=== PATIENT | female | born 1945 | race Hispanic/Latino ===

== ENCOUNTER 2016-12-16 07:07 | Day surgery (SDC) | payer MEDICARE ==
[~2016-12-16 07:07] MED LIST: TETRACAINE 0.5% OS PRN
[2016-12-16] MEDS: MYDRIACYL OS SCH ×3 (08:40→08:50)
[2016-12-16] MEDS: AK-Dilate OS SCH ×3 (08:40→08:50)
[2016-12-16] MEDS: VIGAMOX OS SCH ×3 (08:40→08:50)
[2016-12-16] MEDS ORDERED: VERSED ONE (08:57)
--- NOTE | 2016-12-16 08:57 | Anesthesia Day of Surgery ---
Anesthesia Day of Surgery - Day of Surgery Patient Examined: Yes Patient H&P Reviewed: Yes Patient is NPO: Yes
[2016-12-16] MEDS ORDERED: SUBLIMAZE ONE (08:58)
--- NOTE | 2016-12-16 09:00 | Anesthesia Consultation ---
Anesthesia Consult and Med Hx Date of service: 12/16/16 - Airway Anesthetic Teeth Evaluation: Good ROM Head & Neck: Adequate Mental/Hyoid Distance: Adequate (small mouth opening) Mallampati Class: Class IV Intubation Access Assessment: Possibly Difficult - Pulmonary Exam CTA: Yes - Cardiac Exam Cardiac Exam: RRR - Pre-Operative Health Status ASA Pre-Surgery Classification: ASA3 Proposed Anesthetic Plan: MAC - Pulmonary Hx Smoking: No Hx Respiratory Symptoms: Yes (coughing) Hx Sleep Apnea: No - Cardiovascular System Hx Hypertension: Yes (irregular heart beat 5-6 years ago, ) Hx Heart Attack/AMI: No Hx Angina: No - Central Nervous System Hx Seizures: No CVA: No Hx Psychiatric Problems: Yes (anxiety) - Gastrointestinal Hx Gastroesophageal Reflux Disease: Yes (spicy foods) - Endocrine Hx Renal Disease: No Hx Liver Disease: No Hx Non-Insulin Dependent Diabetes: Yes (metformin) - Hematic Hx Anemia: No - Other Systems 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
[2016-12-16] MEDS ORDERED: WATER FOR IRRIG STERILE IR ONE (09:01)
--- NOTE | 2016-12-16 09:35 | Operative Report ---
Operative Report Operative Report: PATIENT'S NAME: DATE OF : DATE OF SURGERY: 12/16/2016 PREOPERATIVE DIAGNOSIS: Cataract left eye POSTOPERATIVE DIAGNOSIS: Same OPERATIVE PROCEDURE: Phacoemulsification with intraocular lens implantation, left eye SURGEON: Rebecca Avila M.D. DOCUMENTATION NURSE SURGEON: Tiburcio Lens: [id number] 18.0 D ANESTHESIA: Monitored anesthesia care in combination with topical and intracameral anesthesia because of the established specific risk of reflux, arrhythmias, or anxiety attacks associated with ocular manipulation, as well as the difficulty of the wheel alignment mechanic to manage such potentially catastrophic events while simultaneously attempting to complete the surgical procedure and was deemed necessary for the patient's safety to have an Supervisor Fruit Grading present during the procedure whenever possible. An Supervisor Fruit Grading was utilized to regulate the intravenous sedation of the patient so the patient was cooperative yet not asleep in order for the patient to successfully maintain fixation of the eye on the operating light of the microscope. COMPLICATIONS: No surgical complications No blood loss. ALLERGIES: No known drug allergies PROGNOSIS: Excellent INDICATIONS FOR SURGERY: The patient is undergoing surgery in the hopes of eliminating or improving these visual difficulties. PROCEDURE: After arriving at the surgery center, the patient was given topical anesthetic and dilating drops, as noted in the record. The patient was then taken into the operating room and given more anesthetic drops. The eyelids , lashes, and lid margins were scrubbed with Betadine solution, and the patient was draped. The Nurse Supervisor Fruit Grading administered IV sedation and monitored the patient during the procedure. The eye was then fixated with a 0.12, and a stab incision was made in the peripheral clear cornea into the anterior chamber. This was made on my left side. Viscoelastic was next used to fill the anterior chamber. The eye was once again fixated with the 0.12 forceps and a keratome was used make an incision in clear cornea peripherally on my right hand side temporally. The capsule forceps were used to open the central anterior capsule and then make a continuous round capsulotomy. Hydrodissection was carried out utilizing a cannula and balanced salt solution to delineate the cortical material from the capsule and the nucleus from the cortical material. The phaco tip was introduced into the eye and used to remove the anterior cortical material in the area of the capsulotomy. Then the phaco tip was buried into the nucleus, and a chopping instrument was introduced into the eye and used to provide countertraction in the nucleus between this instrument and the phaco tip fracturing the nucleus. This procedure was repeated multiple times, providing multiple small segments of the lens, and then the phaco tip was used to remove each of these segments. An I/A tip was then used to remove the remaining cortex. The anterior chamber was refilled with viscoelastic. An one-piece, acrylic intraocular lens was then placed into an inserting cartridge. The tip of the inserting cartridge was introduced into the keratome incision and into the anterior chamber. The implant was gently advanced through the cartridge and into the eye, where it unfolded, and both haptics were placed in the capsular bag, where it centered nicely and appeared to be well fixated. After placement of the intraocular lens, the I~and~A handpiece was placed back into the eye and used to remove the viscoelastic, including viscoelastic that was behind the optic of the intraocular lens. The anterior chamber was then filled with balanced salt solution, and hydration of the wound was used to cause swelling of the wound and more appropriate watertight closure. When the wound was found to be firm, the patient was asked to comment on how bright the light was. If there was no light perception at all or if the light was substantially dimmer than during the rest of the surgery, the amount of fluid in the eye was decompressed to lower the intraocular pressure until the patient could see the bright light again. This was done to avoid any damage or decreased blood flow to the optic nerve. MEDICATIONS APPLIED AT END OF SURGERY: One drop of Pred Forte and Vigamox The patient was given a shield to wear at night and was instructed not to rub or push on the eye. DISCHARGE SUMMARY: The patient was released in stable condition. The patient and those with the patient were given a written sheet of postoperative instructions and counseling on any abnormal laboratory studies. The patient is to see us tomorrow for follow-up in the office and is to call immediately for any difficulties. Rebecca Avila M.D. Date
--- NOTE | 2016-12-16 09:37 | Short Stay Summary ---
Short Stay Documentation Date of service: 12/16/16 - History H&P: obtained from office - Allergies and Medications Current Medications: Allergies No Known Allergies Allergy (Unverified 01/23/15 09:01) Home Medications Medication Instructions Recorded Confirmed Last Taken Type Amlodipine Besylate/Benazepril 1 each PO QDAY 12/15/16 12/15/16 12/16/16 05:30 History [Lotrel 10-40 mg] AtorvaSTATin [Lipitor] 20 mg PO QDAY 12/15/16 12/15/16 12/15/16 History FLUoxetine [PROzac] 20 mg PO QDAY 12/15/16 12/15/16 12/15/16 History Glimepiride [Amaryl] 2 mg PO BID 12/15/16 12/15/16 12/15/16 History Goody's Ex-Str Powder Packet 1 packet PO QDAY PRN 12/15/16 12/15/16 12/15/16 History Metformin HCl [Glucophage] 1,000 mg PO BID 12/15/16 12/15/16 12/15/16 History Triamter/Hctz 37.5-25 mg 0.5 tab PO QDAY 12/15/16 12/15/16 12/16/16 05:30 History [Maxzide-25] Active Medications Moxifloxacin HCl (Vigamox) 1 drops OS Q5MIN DAMI Stop: 12/16/16 18:00 Last Admin: 12/16/16 08:50 Dose: 1 drops Phenylephrine HCl (Ak-Dilate) 1 drops OS Q5MIN DAMI Stop: 12/16/16 18:00 Last Admin: 12/16/16 08:50 Dose: 1 drops Tetracaine HCl (Tetracaine 0.5%) 1 drops OS Q5M PRN PRN Reason: Analgesia Stop: 12/16/16 18:00 Last Admin: 12/16/16 08:40 Dose: 1 drops Tropicamide (Mydriacyl) 1 drops OS Q5MIN DAMI Stop: 12/16/16 18:00 Last Admin: 12/16/16 08:50 Dose: 1 drops - Brief post op/procedure progress note Date of procedure: 12/16/16 Pre-op diagnosis: cataract left Post-op diagnosis: same Procedure: Phacoemulsification with intraocular lens insertion left eye Anesthesia: MAC Surgeon: JENNIFER GRAHAM Estimated blood loss: none Pathology: none Condition: stable - Disposition Condition at discharge: Good Disposition: DISCHARGED TO HOME OR SELFCARE - Discharge Diagnoses (1) Cataract Status: Resolved Short Stay Discharge Plan Follow up with: ORLIN BLACKMON MD [Primary Care Provider] - 7 Days
[2016-12-16] MEDS ORDERED: PRED FORTE 1% OS SCH (10:00)
--- NOTE | 2016-12-16 10:00 | Post Anesthesia Evaluation ---
- Post Anesthesia Evaluation Patient Participated: Yes Airway Patent: Yes Stable Respiratory Function: Yes Nausea/Vomiting: No Temp > 96.8F: Yes Pain Manageable: Yes Adequeate Hydration: Yes Anesthesia Complications: No Block Receding Appropriately: Not Applicable Patient on Ventilator: No
[2016-12-16 10:13] VITALS: BP 135/66
== END 2016-12-16 10:25 | disposition home or self-care (01) ==
LOC: OR 07:07
DX: E11.36 Type 2 diabetes mellitus with diabetic cataract (principal); M19.90 Unspecified osteoarthritis, unspecified site; I10 Essential (primary) hypertension; K21.9 Gastro-esophageal reflux disease without esophagitis; F41.9 Anxiety disorder, unspecified; E66.9 Obesity, unspecified; Z68.41 Body mass index [BMI] 40.0-44.9, adult; Z79.84 Long term (current) use of oral hypoglycemic drugs; Z85.828 Personal history of other malignant neoplasm of skin
CPT/HCPCS: 66984; 82962; J2250; J3010; V2632

== ENCOUNTER 2016-12-30 07:41 | Day surgery (SDC) | payer MEDICARE ==
[~2016-12-30 07:41] MED LIST changes: +TETRACAINE 0.5% OD PRN; -TETRACAINE 0.5% OS PRN
[2016-12-30] MEDS ORDERED: SUBLIMAZE ONE (08:57)
[2016-12-30] MEDS ORDERED: VERSED ONE (08:57)
[2016-12-30] MEDS ORDERED: NACL P/F VIAL (10 ML) 10 ML ONE (08:59)
--- NOTE | 2016-12-30 09:32 | Anesthesia Consultation ---
Anesthesia Consult and Med Hx Date of service: 12/30/16 - Airway Anesthetic Teeth Evaluation: Good (upper left side tooth decayed in middle) Mallampati Class: Class III (small mouth) Intubation Access Assessment: Probably Good - Pulmonary Exam CTA: Yes - Cardiac Exam Cardiac Exam: RRR - Pre-Operative Health Status ASA Pre-Surgery Classification: ASA3 Proposed Anesthetic Plan: MAC - Pulmonary Hx Smoking: No Hx Respiratory Symptoms: Yes (coughing) Hx Sleep Apnea: No - Cardiovascular System Hx Hypertension: Yes Hx Heart Attack/AMI: No Hx Angina: No - Central Nervous System Hx Seizures: No CVA: No Hx Psychiatric Problems: Yes - Gastrointestinal Hx Gastroesophageal Reflux Disease: Yes (spicy foods) - Endocrine Hx Renal Disease: No Hx Liver Disease: No Hx Non-Insulin Dependent Diabetes: Yes (metformin) - Hematic Hx Anemia: No - Other Systems 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
--- NOTE | 2016-12-30 09:33 | Anesthesia Day of Surgery ---
Anesthesia Day of Surgery - Day of Surgery Patient Examined: Yes Patient H&P Reviewed: Yes Patient is NPO: Yes
[2016-12-30] MEDS: MYDRIACYL OD SCH ×3 (10:35→10:45)
[2016-12-30] MEDS: VIGAMOX OD SCH ×3 (10:35→10:45)
[2016-12-30] MEDS: AK-Dilate OD SCH ×3 (10:35→10:45)
--- NOTE | 2016-12-30 11:48 | Operative Report ---
Operative Report Operative Report: PATIENT'S NAME: DATE OF : DATE OF SURGERY: 12/30/2016 PREOPERATIVE DIAGNOSIS: Cataract right eye POSTOPERATIVE DIAGNOSIS: Same OPERATIVE PROCEDURE: Phacoemulsification with intraocular lens implantation, right eye SURGEON: Rebecca Avila M.D. GREASE REFINER OPERATOR SURGEON: Tiburcio Lens: [id number] 18.0 D ANESTHESIA: Monitored anesthesia care in combination with topical and intracameral anesthesia because of the established specific risk of reflux, arrhythmias, or anxiety attacks associated with ocular manipulation, as well as the difficulty of the middle school volleyball coach to manage such potentially catastrophic events while simultaneously attempting to complete the surgical procedure and was deemed necessary for the patient's safety to have an Wildlife And Game Protector present during the procedure whenever possible. An Wildlife And Game Protector was utilized to regulate the intravenous sedation of the patient so the patient was cooperative yet not asleep in order for the patient to successfully maintain fixation of the eye on the operating light of the microscope. COMPLICATIONS: No surgical complications No blood loss. ALLERGIES: No known drug allergies PROGNOSIS: Excellent INDICATIONS FOR SURGERY: The patient is undergoing surgery in the hopes of eliminating or improving these visual difficulties. PROCEDURE: After arriving at the surgery center, the patient was given topical anesthetic and dilating drops, as noted in the record. The patient was then taken into the operating room and given more anesthetic drops. The eyelids , lashes, and lid margins were scrubbed with Betadine solution, and the patient was draped. The Nurse Wildlife And Game Protector administered IV sedation and monitored the patient during the procedure. The eye was then fixated with a 0.12, and a stab incision was made in the peripheral clear cornea into the anterior chamber. This was made on my left side. Viscoelastic was next used to fill the anterior chamber. The eye was once again fixated with the 0.12 forceps and a keratome was used make an incision in clear cornea peripherally on my right hand side temporally. The capsule forceps were used to open the central anterior capsule and then make a continuous round capsulotomy. Hydrodissection was carried out utilizing a cannula and balanced salt solution to delineate the cortical material from the capsule and the nucleus from the cortical material. The phaco tip was introduced into the eye and used to remove the anterior cortical material in the area of the capsulotomy. Then the phaco tip was buried into the nucleus, and a chopping instrument was introduced into the eye and used to provide countertraction in the nucleus between this instrument and the phaco tip fracturing the nucleus. This procedure was repeated multiple times, providing multiple small segments of the lens, and then the phaco tip was used to remove each of these segments. An I/A tip was then used to remove the remaining cortex. The anterior chamber was refilled with viscoelastic. An one-piece, acrylic intraocular lens was then placed into an inserting cartridge. The tip of the inserting cartridge was introduced into the keratome incision and into the anterior chamber. The implant was gently advanced through the cartridge and into the eye, where it unfolded, and both haptics were placed in the capsular bag, where it centered nicely and appeared to be well fixated. After placement of the intraocular lens, the I~and~A handpiece was placed back into the eye and used to remove the viscoelastic, including viscoelastic that was behind the optic of the intraocular lens. The anterior chamber was then filled with balanced salt solution, and hydration of the wound was used to cause swelling of the wound and more appropriate watertight closure. When the wound was found to be firm, the patient was asked to comment on how bright the light was. If there was no light perception at all or if the light was substantially dimmer than during the rest of the surgery, the amount of fluid in the eye was decompressed to lower the intraocular pressure until the patient could see the bright light again. This was done to avoid any damage or decreased blood flow to the optic nerve. MEDICATIONS APPLIED AT END OF SURGERY: One drop of Pred Forte and Vigamox The patient was given a shield to wear at night and was instructed not to rub or push on the eye. DISCHARGE SUMMARY: The patient was released in stable condition. The patient and those with the patient were given a written sheet of postoperative instructions and counseling on any abnormal laboratory studies. The patient is to see us tomorrow for follow-up in the office and is to call immediately for any difficulties. Rebecca Avila M.D. Date
--- NOTE | 2016-12-30 11:49 | Short Stay Summary ---
Short Stay Documentation Date of service: 12/30/16 - History H&P: obtained from office - Allergies and Medications Current Medications: Allergies No Known Allergies Allergy (Unverified 12/24/16 14:55) Home Medications Medication Instructions Recorded Confirmed Last Taken Type Amlodipine Besylate/Benazepril 1 each PO QDAY 12/15/16 12/24/16 12/30/16 06:00 History [Lotrel 10-40 mg] AtorvaSTATin [Lipitor] 20 mg PO QDAY 12/15/16 12/24/16 12/29/16 History FLUoxetine [PROzac] 20 mg PO QDAY 12/15/16 12/24/16 12/29/16 History Glimepiride [Amaryl] 2 mg PO BID 12/15/16 12/24/16 12/29/16 History Goody's Ex-Str Powder Packet 1 packet PO QDAY PRN 12/15/16 12/24/16 12/29/16 History Metformin HCl [Glucophage] 1,000 mg PO BID 12/15/16 12/24/16 12/29/16 History Triamter/Hctz 37.5-25 mg 0.5 tab PO QDAY 12/15/16 12/24/16 12/30/16 06:00 History [Maxzide-25] Active Medications Moxifloxacin HCl (Vigamox) 1 drops OD Q5MIN DAMI Stop: 12/30/16 18:01 Last Admin: 12/30/16 10:45 Dose: 1 drops Phenylephrine HCl (Ak-Dilate) 1 drops OD Q5MIN DAMI Stop: 12/30/16 18:01 Last Admin: 12/30/16 10:45 Dose: 1 drops Prednisolone Acetate (Pred Forte 1%) 1 drops OD QID DAMI Tetracaine HCl (Tetracaine 0.5%) 1 drops OD Q5M PRN PRN Reason: Analgesia Last Admin: 12/30/16 10:35 Dose: 1 drops Tropicamide (Mydriacyl) 1 drops OD Q5MIN DAMI Stop: 12/30/16 23:01 Last Admin: 12/30/16 10:45 Dose: 1 drops - Brief post op/procedure progress note Date of procedure: 12/30/16 Pre-op diagnosis: CATARACT RIGHT EYE Post-op diagnosis: same Procedure: Phacoemulsification with intraocular lens insertion right eye Anesthesia: MAC Surgeon: JENNIFER GRAHAM Estimated blood loss: none Pathology: none Condition: stable - Disposition Condition at discharge: Good Disposition: DISCHARGED TO HOME OR SELFCARE - Discharge Diagnoses (1) Cataract Status: Resolved Qualifiers: Cataract type: age-related Age-related cataract type: combined forms Infantile/juvenile cataract type: I Traumatic cataract type: T Complicated cataract type: C Secondary cataract type: S Laterality: right Qualified Code(s): H25.811 - Combined forms of age-related cataract, right eye Short Stay Discharge Plan Follow up with: ORLIN BLACKMON MD [Primary Care Provider] - 7 Days
[2016-12-30] MEDS ORDERED: PRED FORTE 1% OD SCH (12:00)
[2016-12-30 12:57] VITALS: BP 149/73
== END 2016-12-30 07:42 | disposition home or self-care (01) ==
LOC: OR 07:41
DX: E11.36 Type 2 diabetes mellitus with diabetic cataract (principal); K21.9 Gastro-esophageal reflux disease without esophagitis; D64.9 Anemia, unspecified; I10 Essential (primary) hypertension; M19.90 Unspecified osteoarthritis, unspecified site; E66.9 Obesity, unspecified; Z68.41 Body mass index [BMI] 40.0-44.9, adult; Z85.828 Personal history of other malignant neoplasm of skin; Z79.84 Long term (current) use of oral hypoglycemic drugs; Z79.899 Other long term (current) drug therapy
CPT/HCPCS: 66984; 82962; J2250; J3010; V2632

== ENCOUNTER 2017-05-11 09:47 | Outpatient (CLI) | payer MEDICARE ==
--- NOTE | 2017-05-11 11:53 | Mammography Report ---
Bilateral mammogram: Compared to 05/10/16. CAD study utilized. Findings: Predominance and adipose tissue bilaterally. Benign vascular calcifications and benign calcifications bilaterally. Benign axillary nodes. Impression: Benign findings. Annual followup recommended. BI-RADS CATEGORY: 2 = Benign ACR BI-RADS MAMMOGRAPHIC CODES: 0 = Needs additional imaging evaluation; 1 = Negative; 2 = Benign; 3 = Probably benign; 4 = Suspicious; 5 = Malignant; 6 = Known biopsy-proven malignancy COMMENT: 1. Dense breast tissue, i.e., adenosis, fibrocystic changes, etc., may obscure an underlying neoplasm. 2. Approximately 10% of cancers are not detected with mammography. 3. A negative mammography report should not delay biopsy if a clinically suspicious mass is present. COMMENT: Patient follow-up letters are generated in [employer].
== END 2017-05-11 09:48 | disposition home or self-care (01) ==
LOC: MAMMO 09:47
PROVIDERS: ATTEND Internal Medicine
DX: Z12.31 Encounter for screening mammogram for malignant neoplasm of breast (principal); I10 Essential (primary) hypertension; E78.00 Pure hypercholesterolemia, unspecified; E11.9 Type 2 diabetes mellitus without complications
CPT/HCPCS: 77067; G0202

== ENCOUNTER 2021-03-23 21:14 | Inpatient (IN) | payer MEDICARE ==
--- NOTE | 2021-03-23 23:33 | Event Note ---
Date: 03/23/21 The patient was evaluated in the emergency department for symptoms described in the history of present illness. He/she was evaluated in the context of the global COVID-19 pandemic, which necessitated consideration that the patient might be at risk for infection with the virus that causes COVID-19. Institutional protocols and algorithms that pertain to the evaluation of patients at risk for COVID-19 are in a state of rapid change based on information released by regulatory bodies including the CDC and federal and state organizations. These policies and algorithms were followed during the patient's care in the emergency department. Please note that these policies, procedures and recommendations changed on a rapid basis. EMS documentation not available at time of chart dictation 75-year-old female brought to the hospital by EMS with a chief complaint of failure to thrive, and generalized weakness. EMS reports normal vital signs in the field. Patient is awake but appears very weak. She is breathing spontaneously moving 4 extremities. Obtain appropriate laboratory studies, EKG, urinalysis, Placed into room as soon as possible, and continue care.
[2021-03-24 01:38] LABS: Basophils # (Auto) 0.1 K/mm3 (0.0-0.1); Basophils % (Auto) 0.4 % (0.0-1.8); Hematocrit 30.6 % (30.3-42.9); Hemoglobin 10.1 gm/dl (10.1-14.3); Lymphocytes # (Auto) 1.1 K/mm3 (1.2-5.4); Lymphocytes % (Auto) 7.2 % (13.4-35.0); Mean Corpuscular HGB Conc 33 % (30-34); Mean Corpuscular Volume 86 fl (79-97); Monocytes % (Auto) 6.9 % (0.0-7.3); Platelet Count 668 K/mm3 (140-440); Red Blood Count 3.58 M/mm3 (3.65-5.03); Red Cell Distribution Width 15.7 % (13.2-15.2)
[2021-03-24 01:48] LABS: INR 1.27 (0.87-1.13)
[2021-03-24 01:53] LABS: Albumin 2.5 g/dL (3.9-5); Calcium 8.2 mg/dL (8.4-10.2)
[2021-03-24 02:31] LABS: Chol/HDL Ratio 1.8 %
[2021-03-24] MEDS ORDERED: DEXTROSE 50% IN WATER (25GM) 50 ML SYRINGE IV ONE (03:18)
[2021-03-24] MEDS ORDERED: ALBUTEROL 2.5 MG/3 ML NEBU IH ONE (03:18)
[2021-03-24] MEDS ORDERED: CALCIUM CHLORIDE 1,000 MG in SODIUM CHLORIDE 0.9% 100 ML IV ONE (03:18)
[2021-03-24] MEDS ORDERED: INSULIN REGULAR, HUMAN 100 UNITS/1 ML IV ONE (03:18)
--- NOTE | 2021-03-24 03:58 | Emergency Department Report ---
ED General Adult HPI - General Chief complaint: Altered Mental Status Stated complaint: WEAKNESS, SICK Time Seen by Provider: 03/24/21 03:17 Source: patient, EMS Mode of arrival: Stretcher Limitations: Altered Mental Status - History of Present Illness Initial comments: Patient is a 75 years old female with history of hypertension and arthritis. Patient with contracted neck to the right side. Patient brought to the emergency room via EMS from home for evaluation of failure to thrive and generalized weakness. Patient stated that she is living by herself but her son comes sometimes to help her. Patient reported decreased p.o. intake for the last few days. Patient looks really dehydrated. Patient is alert, oriented in place but not time. Patient denied any fever or chills. No cough or shortness of breath. - Related Data Home Medications Medication Instructions Recorded Confirmed Last Taken AtorvaSTATin [Lipitor] 20 mg PO QDAY 12/15/16 12/24/16 12/29/16 FLUoxetine [PROzac] 20 mg PO QDAY 12/15/16 03/25/21 12/29/16 Metformin HCl [Glucophage] 750 mg PO BID 12/15/16 03/25/21 12/29/16 Gabapentin [Neurontin] 300 mg PO Q8HR 03/25/21 03/25/21 Unknown Sitagliptin Phosphate [Januvia] 100 mg PO 03/25/21 Unknown cilostazoL [Pletal] 100 mg PO BID 03/25/21 03/25/21 Unknown Allergies Allergy/AdvReac Type Severity Reaction Status Date / Time No Known Allergies Allergy Unverified 12/24/16 14:55 ED Review of Systems ROS: Stated complaint: WEAKNESS, SICK Other details as noted in HPI Comment: All other systems reviewed and negative Constitutional: denies: chills, fever Respiratory: denies: cough, orthopnea, shortness of breath, SOB with exertion, SOB at rest Cardiovascular: denies: chest pain, palpitations Gastrointestinal: nausea, diarrhea. denies: abdominal pain, vomiting, constipation, hematemesis, melena, hematochezia Musculoskeletal: denies: back pain ED Past Medical Hx - Past Medical History Hx Hypertension: Yes (irregular heart beat 5-6 years ago, ) Hx Heart Attack/AMI: No Hx Congestive Heart Failure: No Hx GERD: (WITH SPICEY FOOD) Hx Liver Disease: No Hx Renal Disease: No Hx Arthritis: Yes (HANDS) Hx Seizures: No - Social History Smoking Status: Never Smoker - Medications Home Medications: Home Medications Medication Instructions Recorded Confirmed Last Taken Type AtorvaSTATin [Lipitor] 20 mg PO QDAY 12/15/16 12/24/16 12/29/16 History FLUoxetine [PROzac] 20 mg PO QDAY 12/15/16 03/25/21 12/29/16 History Metformin HCl [Glucophage] 750 mg PO BID 12/15/16 03/25/21 12/29/16 History Gabapentin [Neurontin] 300 mg PO Q8HR 03/25/21 03/25/21 Unknown History Sitagliptin Phosphate [Januvia] 100 mg PO 03/25/21 Unknown History cilostazoL [Pletal] 100 mg PO BID 03/25/21 03/25/21 Unknown History ED Physical Exam - General Limitations: Altered Mental Status General appearance: alert, in no apparent distress - Head Head exam: Present: atraumatic, normocephalic, normal inspection - ENT ENT exam: Present: mucous membranes dry - Neck Neck exam: Absent: tenderness, full ROM - Respiratory Respiratory exam: Present: normal lung sounds bilaterally - Cardiovascular Cardiovascular Exam: Present: irregular rhythm, normal heart sounds - GI/Abdominal GI/Abdominal exam: Present: soft. Absent: distended, tenderness, guarding, rebound, rigid - Back Exam Back exam: Present: other (Multiple decubitus ulcer.) - Neurological Exam Neurological exam: Present: alert - Psychiatric Psychiatric exam: Present: flat affect - Skin Skin exam: Present: warm ED Course Vital Signs 03/24/21 03/24/21 03/24/21 02:45 03:24 03:30 Temperature 98.5 F Pulse Rate 96 H Pulse Rate [ Throughout] Respiratory 12 Rate Respiratory Rate [ Throughout] Blood Pressure 96/36 66/19 Blood Pressure [Left] O2 Sat by Pulse 94 90 Oximetry 03/24/21 03/24/21 03/24/21 03:48 04:00 04:16 Temperature Pulse Rate 114 H 96 H 97 H Pulse Rate [ Throughout] Respiratory 26 H 13 17 Rate Respiratory Rate [ Throughout] Blood Pressure 65/31 Blood Pressure [Left] O2 Sat by Pulse Oximetry 03/24/21 03/24/21 03/24/21 04:30 04:46 04:57 Temperature Pulse Rate 107 H 99 H Pulse Rate [ 105 H Throughout] Respiratory 20 21 Rate Respiratory 20 Rate [ Throughout] Blood Pressure 78/50 79/43 Blood Pressure [Left] O2 Sat by Pulse 92 Oximetry 03/24/21 03/24/21 03/24/21 05:00 05:16 05:30 Temperature Pulse Rate 98 H 100 H 108 H Pulse Rate [ Throughout] Respiratory 20 18 18 Rate Respiratory Rate [ Throughout] Blood Pressure 80/24 102/81 55/35 Blood Pressure [Left] O2 Sat by Pulse 92 88 Oximetry 03/24/21 03/24/21 03/24/21 05:46 06:00 06:16 Temperature Pulse Rate 108 H 110 H 107 H Pulse Rate [ Throughout] Respiratory 19 24 15 Rate Respiratory Rate [ Throughout] Blood Pressure 75/33 76/25 82/24 Blood Pressure [Left] O2 Sat by Pulse Oximetry 03/24/21 03/24/21 03/24/21 06:30 06:46 07:00 Temperature Pulse Rate 106 H 103 H 103 H Pulse Rate [ Throughout] Respiratory 23 18 22 Rate Respiratory Rate [ Throughout] Blood Pressure 75/26 74/22 73/22 Blood Pressure [Left] O2 Sat by Pulse 97 98 97 Oximetry 03/24/21 03/24/21 03/24/21 07:16 07:30 07:46 Temperature Pulse Rate 101 H 109 H 104 H Pulse Rate [ Throughout] Respiratory 18 19 23 Rate Respiratory Rate [ Throughout] Blood Pressure 70/21 81/30 82/50 Blood Pressure [Left] O2 Sat by Pulse 97 95 Oximetry 03/24/21 03/24/21 03/24/21 08:00 08:16 08:30 Temperature Pulse Rate 104 H 102 H 103 H Pulse Rate [ Throughout] Respiratory 20 14 15 Rate Respiratory Rate [ Throughout] Blood Pressure 88/18 92/22 85/21 Blood Pressure [Left] O2 Sat by Pulse Oximetry 03/24/21 03/24/21 03/24/21 08:46 09:00 09:16 Temperature Pulse Rate 105 H 103 H 101 H Pulse Rate [ Throughout] Respiratory 15 29 H 15 Rate Respiratory Rate [ Throughout] Blood Pressure 80/18 75/21 69/20 Blood Pressure [Left] O2 Sat by Pulse 98 97 98 Oximetry 03/24/21 03/24/21 03/24/21 09:30 09:46 10:00 Temperature Pulse Rate 102 H 99 H 100 H Pulse Rate [ Throughout] Respiratory 20 13 16 Rate Respiratory Rate [ Throughout] Blood Pressure 65/30 76/28 85/21 Blood Pressure [Left] O2 Sat by Pulse 98 100 Oximetry 03/24/21 03/24/21 03/24/21 10:16 10:30 10:46 Temperature Pulse Rate 102 H 102 H 102 H Pulse Rate [ Throughout] Respiratory 14 14 14 Rate Respiratory Rate [ Throughout] Blood Pressure 82/24 93/24 94/24 Blood Pressure [Left] O2 Sat by Pulse 99 Oximetry 03/24/21 03/24/21 03/24/21 11:00 11:16 11:30 Temperature Pulse Rate 103 H 104 H 105 H Pulse Rate [ Throughout] Respiratory 14 15 15 Rate Respiratory Rate [ Throughout] Blood Pressure 103/22 105/20 101/27 Blood Pressure [Left] O2 Sat by Pulse Oximetry 03/24/21 03/24/21 03/24/21 11:46 12:00 12:16 Temperature Pulse Rate 105 H 104 H 105 H Pulse Rate [ Throughout] Respiratory 23 19 17 Rate Respiratory Rate [ Throughout] Blood Pressure 101/29 93/26 103/25 Blood Pressure [Left] O2 Sat by Pulse 96 Oximetry 03/24/21 03/24/21 03/24/21 12:30 12:46 13:00 Temperature Pulse Rate 109 H 109 H 110 H Pulse Rate [ Throughout] Respiratory 24 22 22 Rate Respiratory Rate [ Throughout] Blood Pressure 109/42 119/35 112/32 Blood Pressure [Left] O2 Sat by Pulse 68 L 97 Oximetry 03/24/21 03/24/21 03/24/21 13:16 13:30 13:46 Temperature Pulse Rate 107 H 95 H 102 H Pulse Rate [ Throughout] Respiratory 20 26 H 20 Rate Respiratory Rate [ Throughout] Blood Pressure 131/112 131/112 69/25 Blood Pressure [Left] O2 Sat by Pulse 85 97 99 Oximetry 03/24/21 03/24/21 03/24/21 14:00 14:16 14:30 Temperature Pulse Rate 102 H 96 H 98 H Pulse Rate [ Throughout] Respiratory 25 H 28 H 21 Rate Respiratory Rate [ Throughout] Blood Pressure 76/18 68/22 87/34 Blood Pressure [Left] O2 Sat by Pulse 82 L 99 99 Oximetry 03/24/21 03/24/21 03/24/21 14:46 15:00 15:16 Temperature Pulse Rate 95 H 97 H 101 H Pulse Rate [ Throughout] Respiratory 16 16 15 Rate Respiratory Rate [ Throughout] Blood Pressure 87/34 82/20 82/20 Blood Pressure [Left] O2 Sat by Pulse 100 Oximetry 03/24/21 03/24/21 03/24/21 15:30 15:45 16:00 Temperature Pulse Rate 107 H 117 H 121 H Pulse Rate [ Throughout] Respiratory 20 28 H 23 Rate Respiratory Rate [ Throughout] Blood Pressure 99/60 102/82 146/44 Blood Pressure [Left] O2 Sat by Pulse 96 97 Oximetry 03/24/21 03/24/21 03/24/21 16:15 16:30 16:46 Temperature Pulse Rate 112 H 95 H 103 H Pulse Rate [ Throughout] Respiratory 33 H 30 H 35 H Rate Respiratory Rate [ Throughout] Blood Pressure 152/123 145/122 141/117 Blood Pressure [Left] O2 Sat by Pulse 88 94 98 Oximetry 03/24/21 03/24/21 03/24/21 17:00 17:06 17:10 Temperature Pulse Rate 99 H 99 H 98 H Pulse Rate [ Throughout] Respiratory 34 H 26 H 23 Rate Respiratory Rate [ Throughout] Blood Pressure 117/60 117/52 Blood Pressure [Left] O2 Sat by Pulse 96 96 96 Oximetry 03/24/21 03/24/21 03/24/21 17:16 17:20 17:26 Temperature Pulse Rate 99 H 97 H 101 H Pulse Rate [ Throughout] Respiratory 23 22 26 H Rate Respiratory Rate [ Throughout] Blood Pressure 114/33 117/57 136/43 Blood Pressure [Left] O2 Sat by Pulse 95 Oximetry 03/24/21 03/24/21 03/24/21 17:30 17:36 17:40 Temperature Pulse Rate 101 H 104 H 101 H Pulse Rate [ Throughout] Respiratory 23 26 H 26 H Rate Respiratory Rate [ Throughout] Blood Pressure 132/84 134/60 116/51 Blood Pressure [Left] O2 Sat by Pulse 95 100 90 Oximetry 03/24/21 03/24/21 03/24/21 17:46 17:50 17:56 Temperature Pulse Rate 98 H 103 H 103 H Pulse Rate [ Throughout] Respiratory 22 25 H 27 H Rate Respiratory Rate [ Throughout] Blood Pressure 131/53 117/57 109/57 Blood Pressure [Left] O2 Sat by Pulse 90 99 99 Oximetry 03/24/21 03/24/21 03/24/21 18:00 18:06 18:10 Temperature Pulse Rate 104 H 103 H 104 H Pulse Rate [ Throughout] Respiratory 26 H 26 H 26 H Rate Respiratory Rate [ Throughout] Blood Pressure 109/57 118/61 129/49 Blood Pressure [Left] O2 Sat by Pulse 93 100 Oximetry 03/24/21 03/24/21 03/24/21 18:15 18:20 18:30 Temperature Pulse Rate 104 H 107 H 104 H Pulse Rate [ Throughout] Respiratory 24 24 30 H Rate Respiratory Rate [ Throughout] Blood Pressure 138/38 103/79 104/35 Blood Pressure [Left] O2 Sat by Pulse 100 100 98 Oximetry 03/24/21 03/24/21 03/24/21 18:36 18:40 18:45 Temperature Pulse Rate 105 H 105 H 108 H Pulse Rate [ Throughout] Respiratory 26 H 27 H 26 H Rate Respiratory Rate [ Throughout] Blood Pressure 111/78 122/55 133/59 Blood Pressure [Left] O2 Sat by Pulse 98 100 100 Oximetry 03/24/21 03/24/21 03/24/21 18:50 19:00 20:00 Temperature Pulse Rate 107 H 110 H 108 H Pulse Rate [ Throughout] Respiratory 30 H 29 H 33 H Rate Respiratory Rate [ Throughout] Blood Pressure 133/59 109/42 127/45 Blood Pressure [Left] O2 Sat by Pulse 98 98 Oximetry 03/24/21 03/24/21 03/24/21 21:00 23:00 23:36 Temperature Pulse Rate 110 H 115 H 114 H Pulse Rate [ Throughout] Respiratory 31 H 27 H 22 Rate Respiratory Rate [ Throughout] Blood Pressure 117/35 Blood Pressure 124/34 [Left] O2 Sat by Pulse 99 98 99 Oximetry 03/25/21 03/25/21 03/25/21 01:00 02:01 03:01 Temperature Pulse Rate 115 H 119 H 116 H Pulse Rate [ Throughout] Respiratory 33 H 34 H 34 H Rate Respiratory Rate [ Throughout] Blood Pressure 114/37 140/117 113/31 Blood Pressure [Left] O2 Sat by Pulse 97 97 97 Oximetry 03/25/21 03/25/21 03/25/21 04:01 05:17 06:01 Temperature Pulse Rate 108 H 106 H 113 H Pulse Rate [ Throughout] Respiratory 17 28 H 21 Rate Respiratory Rate [ Throughout] Blood Pressure 122/62 108/84 Blood Pressure 112/42 [Left] O2 Sat by Pulse 96 98 94 Oximetry 03/25/21 03/25/21 03/25/21 07:01 07:44 08:01 Temperature Pulse Rate 118 H 119 H 122 H Pulse Rate [ Throughout] Respiratory 22 20 23 Rate Respiratory Rate [ Throughout] Blood Pressure 142/53 108/78 Blood Pressure 137/99 [Left] O2 Sat by Pulse 98 97 97 Oximetry 03/25/21 03/25/21 03/25/21 08:43 09:01 10:01 Temperature Pulse Rate 122 H 120 H Pulse Rate [ Throughout] Respiratory 18 44 H 17 Rate Respiratory Rate [ Throughout] Blood Pressure 108/78 121/62 Blood Pressure [Left] O2 Sat by Pulse 97 97 95 Oximetry 03/25/21 03/25/21 03/25/21 10:15 10:31 10:45 Temperature Pulse Rate 117 H 117 H 117 H Pulse Rate [ Throughout] Respiratory 13 16 19 Rate Respiratory Rate [ Throughout] Blood Pressure 121/62 104/67 117/33 Blood Pressure [Left] O2 Sat by Pulse 96 96 97 Oximetry 03/25/21 03/25/21 03/25/21 11:01 11:15 11:31 Temperature Pulse Rate 120 H 113 H 114 H Pulse Rate [ Throughout] Respiratory 22 25 H 35 H Rate Respiratory Rate [ Throughout] Blood Pressure 77/42 77/42 77/42 Blood Pressure [Left] O2 Sat by Pulse 97 98 99 Oximetry 03/25/21 03/25/21 03/25/21 11:35 11:45 12:01 Temperature 98.6 F Pulse Rate 115 H 114 H 117 H Pulse Rate [ Throughout] Respiratory 22 15 31 H Rate Respiratory Rate [ Throughout] Blood Pressure 77/42 193/168 Blood Pressure 104/38 [Left] O2 Sat by Pulse 98 98 96 Oximetry 03/25/21 03/25/21 03/25/21 12:08 12:15 12:31 Temperature 98.6 F Pulse Rate 112 H 117 H 123 H Pulse Rate [ Throughout] Respiratory 22 15 37 H Rate Respiratory Rate [ Throughout] Blood Pressure 190/160 190/160 Blood Pressure 124/46 [Left] O2 Sat by Pulse 98 97 95 Oximetry 03/25/21 03/25/21 03/25/21 12:45 13:01 13:15 Temperature Pulse Rate 110 H 111 H 77 Pulse Rate [ Throughout] Respiratory 26 H 24 22 Rate Respiratory Rate [ Throughout] Blood Pressure 95/36 90/37 110/29 Blood Pressure [Left] O2 Sat by Pulse 96 97 95 Oximetry 03/25/21 03/25/21 03/25/21 13:31 13:45 13:46 Temperature 98.1 F Pulse Rate 113 H 77 110 H Pulse Rate [ Throughout] Respiratory 21 32 H 22 Rate Respiratory Rate [ Throughout] Blood Pressure 124/31 152/121 Blood Pressure 111/38 [Left] O2 Sat by Pulse 98 97 98 Oximetry 03/25/21 03/25/21 03/25/21 14:01 14:15 14:31 Temperature Pulse Rate 113 H 111 H 114 H Pulse Rate [ Throughout] Respiratory 17 23 29 H Rate Respiratory Rate [ Throughout] Blood Pressure 105/46 114/31 81/61 Blood Pressure [Left] O2 Sat by Pulse 96 97 95 Oximetry 03/25/21 03/25/21 03/25/21 14:45 15:01 15:15 Temperature Pulse Rate 113 H 89 110 H Pulse Rate [ Throughout] Respiratory 22 32 H 22 Rate Respiratory Rate [ Throughout] Blood Pressure 115/39 127/107 102/30 Blood Pressure [Left] O2 Sat by Pulse 96 97 98 Oximetry 03/25/21 03/25/21 03/25/21 15:31 15:45 16:00 Temperature 98.7 F Pulse Rate 118 H 110 H 118 H Pulse Rate [ Throughout] Respiratory 26 H 21 16 Rate Respiratory Rate [ Throughout] Blood Pressure 105/34 112/28 Blood Pressure 112/87 [Left] O2 Sat by Pulse 97 98 22 L Oximetry 03/25/21 03/25/21 03/25/21 16:01 16:15 16:31 Temperature Pulse Rate 116 H 114 H 112 H Pulse Rate [ Throughout] Respiratory 25 H 26 H 31 H Rate Respiratory Rate [ Throughout] Blood Pressure 105/35 112/87 96/61 Blood Pressure [Left] O2 Sat by Pulse 96 96 95 Oximetry 03/25/21 03/25/21 03/25/21 16:45 17:01 17:15 Temperature Pulse Rate 108 H 109 H 116 H Pulse Rate [ Throughout] Respiratory 22 22 29 H Rate Respiratory Rate [ Throughout] Blood Pressure 96/61 96/25 96/25 Blood Pressure [Left] O2 Sat by Pulse 94 94 96 Oximetry 03/25/21 03/25/21 03/25/21 17:31 17:45 18:00 Temperature Pulse Rate 84 118 H 119 H Pulse Rate [ Throughout] Respiratory 22 32 H 43 H Rate Respiratory Rate [ Throughout] Blood Pressure 104/35 79/64 79/64 Blood Pressure [Left] O2 Sat by Pulse 94 96 96 Oximetry 03/25/21 03/25/21 03/25/21 18:15 18:31 18:45 Temperature Pulse Rate 117 H 119 H 117 H Pulse Rate [ Throughout] Respiratory 25 H 36 H 35 H Rate Respiratory Rate [ Throughout] Blood Pressure 80/24 89/56 108/32 Blood Pressure [Left] O2 Sat by Pulse 95 96 96 Oximetry 03/25/21 03/25/21 03/25/21 19:01 19:45 20:01 Temperature Pulse Rate 120 H 113 H 113 H Pulse Rate [ Throughout] Respiratory 25 H 35 H 38 H Rate Respiratory Rate [ Throughout] Blood Pressure 108/32 109/74 88/40 Blood Pressure [Left] O2 Sat by Pulse 96 95 94 Oximetry 03/25/21 03/25/21 03/25/21 20:15 20:31 21:00 Temperature Pulse Rate 107 H 109 H Pulse Rate [ Throughout] Respiratory 30 H 27 H 26 H Rate Respiratory Rate [ Throughout] Blood Pressure 77/33 77/33 Blood Pressure [Left] O2 Sat by Pulse 95 94 97 Oximetry 03/25/21 03/25/21 03/25/21 21:01 21:15 21:31 Temperature Pulse Rate 108 H 103 H 103 H Pulse Rate [ Throughout] Respiratory 33 H 22 26 H Rate Respiratory Rate [ Throughout] Blood Pressure 139/107 194/154 139/107 Blood Pressure [Left] O2 Sat by Pulse 96 97 98 Oximetry 03/25/21 03/25/21 03/25/21 21:45 23:01 23:15 Temperature Pulse Rate 105 H 105 H 109 H Pulse Rate [ Throughout] Respiratory 27 H 23 15 Rate Respiratory Rate [ Throughout] Blood Pressure 139/107 65/31 65/31 Blood Pressure [Left] O2 Sat by Pulse 97 96 94 Oximetry 03/25/21 03/25/21 03/26/21 23:31 23:45 00:01 Temperature Pulse Rate 105 H 106 H 89 Pulse Rate [ Throughout] Respiratory 22 22 21 Rate Respiratory Rate [ Throughout] Blood Pressure 65/31 65/31 71/24 Blood Pressure [Left] O2 Sat by Pulse 95 95 96 Oximetry 03/26/21 03/26/21 03/26/21 00:15 00:31 00:45 Temperature Pulse Rate 98 H 100 H 99 H Pulse Rate [ Throughout] Respiratory 25 H 22 22 Rate Respiratory Rate [ Throughout] Blood Pressure 71/24 71/24 71/24 Blood Pressure [Left] O2 Sat by Pulse 97 97 97 Oximetry 03/26/21 03/26/21 03/26/21 01:01 01:15 01:31 Temperature Pulse Rate 99 H 99 H 99 H Pulse Rate [ Throughout] Respiratory 23 23 24 Rate Respiratory Rate [ Throughout] Blood Pressure 70/28 70/28 70/28 Blood Pressure [Left] O2 Sat by Pulse 98 98 98 Oximetry 03/26/21 03/26/21 03/26/21 01:45 02:01 02:15 Temperature Pulse Rate 100 H 99 H 100 H Pulse Rate [ Throughout] Respiratory 25 H 23 26 H Rate Respiratory Rate [ Throughout] Blood Pressure 70/28 71/29 70/28 Blood Pressure [Left] O2 Sat by Pulse 98 99 99 Oximetry 03/26/21 03/26/21 03/26/21 02:31 02:45 03:01 Temperature Pulse Rate 98 H 99 H 98 H Pulse Rate [ Throughout] Respiratory 24 22 26 H Rate Respiratory Rate [ Throughout] Blood Pressure 70/28 70/28 69/28 Blood Pressure [Left] O2 Sat by Pulse 99 98 99 Oximetry 03/26/21 03/26/21 03/26/21 03:15 03:31 03:45 Temperature Pulse Rate 97 H 98 H 97 H Pulse Rate [ Throughout] Respiratory 22 20 22 Rate Respiratory Rate [ Throughout] Blood Pressure 69/28 69/28 69/28 Blood Pressure [Left] O2 Sat by Pulse 99 99 99 Oximetry 03/26/21 03/26/21 03/26/21 04:01 04:31 04:45 Temperature Pulse Rate 95 H 97 H 96 H Pulse Rate [ Throughout] Respiratory 22 23 21 Rate Respiratory Rate [ Throughout] Blood Pressure 77/28 77/28 77/28 Blood Pressure [Left] O2 Sat by Pulse 99 99 99 Oximetry ED Medical Decision Making - Lab Data Result diagrams: 03/25/21 04:37 03/25/21 04:37 - Radiology Data Radiology results: report reviewed - Medical Decision Making Patient is a 75 years old female with history of hypertension and arthritis. Patient with contracted neck to the right side. Patient brought to the emergency room via EMS from home for evaluation of failure to thrive and generalized weakness. Patient stated that she is living by herself but her son comes sometimes to help her. Patient reported decreased p.o. intake for the last few days. Patient looks really dehydrated. Patient is alert, oriented in place but not time. Patient denied any fever or chills. No cough or shortness of breath. Patient found to have multiple decubitus ulcer. Patient also has loose stool. Labs reviewed and showed a creatinine of 4.1 and a BUN of 80. Patient potassium is 6.1. Patient received normal saline, calcium chloride, dextrose and insulin and albuterol. I discussed the patient with Dr. Ospina, he agreed to admit the patient to medical service for further management. Critical Care Time: Yes Critical care time in (mins) excluding proc time.: 30 Critical care attestation.: If time is entered above; I have spent that time in minutes in the direct care of this critically ill patient, excluding procedure time. ED Disposition Clinical Impression: Failure to thrive, Acute renal failure, Acute hyperkalemia Disposition: OP ADMIT IP TO THIS HOSP Is pt being admited?: Yes Condition: Stable
[2021-03-24] MEDS ORDERED: ACETAMINOPHEN 325 MG TAB PO PRN ×2 (04:27→11:44)
[2021-03-24] MEDS ORDERED: ONDANSETRON 4 MG/2 ML INJ IV PRN (04:27)
[2021-03-24] MEDS ORDERED: MAGNESIUM HYDROXIDE (MOM) ORAL LIQD UDC PO PRN (04:27)
[2021-03-24] MEDS ORDERED: MORPHINE 4 MG/1 ML INJ IV PRN (04:27)
[2021-03-24] MEDS ORDERED: MORPHINE 2 MG/1 ML INJ IV PRN (04:27)
[2021-03-24] MEDS ORDERED: SODIUM CHLORIDE 0.9% 1000 ML 1,000 ML IV ONE (04:29)
[2021-03-24] MEDS ORDERED: SODIUM CHLORIDE 0.9% 1000 ML 2,000 ML ONE (04:29)
[2021-03-24] MEDS ORDERED: SODIUM CHLORIDE 0.9% 1000 ML 1,000 ML IV SCH (04:30)
--- NOTE | 2021-03-24 04:36 | History and Physical Report ---
History of Present Illness Date of examination: 03/24/21 Date of admission: 03/24/21 03:59 Chief complaint: Generalized weakness Failure to thrive History of present illness: 75-year-old female with known history of hypertension and arthritis brought into the emergency room today by EMS for evaluation of generalized weakness and failure to thrive. Patient lives by herself and son checks on on her sometimes. She has had decreased oral intake over the past few days. She denies any fever or chills, no chest pain or shortness of breath, no cough, no nausea vomiting, no diarrhea. No hematuria or dysuria. Work-up in the emergency room today, labs reveals leukocytosis of 14.9, sodium of 132, potassium of 6.2, elevated BUN and creatinine of 84 and 4.1, respect ively. Patient had elevated creatinine kinase over thousand and 55 and troponin of 0.042. Urinalysis was significant for UTI. Patient was initiated on insulin and glucose, calcium chloride, nebulizing treatment for the hyperkalemia. She was commenced on empiric IV antibiotics for UTI. Past History Past Medical History: arthritis, GERD, hypertension Past Surgical History: No surgical history Social history: no significant social history Family history: no significant family history Medications and Allergies Allergies Allergy/AdvReac Type Severity Reaction Status Date / Time No Known Allergies Allergy Unverified 12/24/16 14:55 Home Medications Medication Instructions Recorded Confirmed Last Taken Type Amlodipine Besylate/Benazepril 1 each PO QDAY 12/15/16 12/24/16 12/30/16 06:00 History [Lotrel 10-40 mg] AtorvaSTATin [Lipitor] 20 mg PO QDAY 12/15/16 12/24/16 12/29/16 History FLUoxetine [PROzac] 20 mg PO QDAY 12/15/16 12/24/16 12/29/16 History Glimepiride [Amaryl] 2 mg PO BID 12/15/16 12/24/16 12/29/16 History Goody's Ex-Str Powder Packet 1 packet PO QDAY PRN 12/15/16 12/24/16 12/29/16 History Metformin HCl [Glucophage] 1,000 mg PO BID 12/15/16 12/24/16 12/29/16 History Triamter/Hctz 37.5-25 mg 0.5 tab PO QDAY 12/15/16 12/24/16 12/30/16 06:00 History [Maxzide-25] Active Meds: Active Medications Acetaminophen (Acetaminophen 325 Mg Tab) 650 mg PO Q4H PRN PRN Reason: Pain MILD(1-3)/Fever >100.5/HORTON Heparin Sodium (Porcine) (Heparin 5,000 Unit/1 Ml Vial) 5,000 unit SUB-Q Q8HR DAMI Sodium Chloride (Nacl 0.9% 1000 Ml) 1,000 mls @ 999 mls/hr IV BOLUS ONE Stop: 03/24/21 05:29 Sodium Chloride (Nacl 0.9% 1000 Ml) 1,000 mls @ 125 mls/hr IV DIRECT DAMI Magnesium Hydroxide (Magnesium Hydroxide (Mom) Oral Liqd Udc) 30 ml PO Q4H PRN PRN Reason: Constipation Morphine Sulfate (Morphine 2 Mg/1 Ml Inj) 2 mg IV Q4H PRN PRN Reason: Pain, Moderate (4-6) Morphine Sulfate (Morphine 4 Mg/1 Ml Inj) 4 mg IV Q4H PRN PRN Reason: Pain , Severe (7-10) Ondansetron HCl (Ondansetron 4 Mg/2 Ml Inj) 4 mg IV Q8H PRN PRN Reason: Nausea And Vomiting Sodium Chloride (Sodium Chloride 0.9% 10 Ml Flush Syringe) 10 ml IV BID DAMI Sodium Chloride (Sodium Chloride 0.9% 10 Ml Flush Syringe) 10 ml IV PRN PRN PRN Reason: LINE FLUSH Review of Systems Constitutional: weakness, no fever, no chills Ears, nose, mouth and throat: no nasal congestion, no sore throat Cardiovascular: no chest pain, no palpitations Respiratory: no cough, no shortness of breath Gastrointestinal: no abdominal pain, no nausea, no vomiting, no diarrhea Genitourinary Female: no flank pain, no dysuria, no hematuria Musculoskeletal: no neck pain, no low back pain Integumentary: no rash, no pruritis Neurological: no headaches, no confusion Psychiatric: no anxiety, no depression Endocrine: no polyphagia, no polydipsia, no polyuria, no nocturia Exam - Constitutional Vitals: Temp Pulse Resp BP Pulse Ox 98.5 F 96 H 12 96/36 94 03/24/21 02:45 03/24/21 02:45 03/24/21 02:45 03/24/21 02:45 03/24/21 02:45 General appearance: Present: no acute distress, well-nourished - EENT Eyes: Present: PERRL, EOM intact. Absent: scleral icterus ENT: hearing intact, clear oral mucosa, dentition normal - Neck Neck: Present: supple, normal ROM - Respiratory Respiratory effort: normal Respiratory: bilateral: CTA - Cardiovascular Rhythm: regular Heart Sounds: Present: S1 & S2. Absent: gallop, systolic murmur, diastolic murmur, rub, click - Extremities Extremities: no ischemia, pulses intact, pulses symmetrical, No edema, normal temperature, Full ROM Peripheral Pulses: within normal limits - Abdominal General gastrointestinal: Present: soft, non-tender, non-distended, normal bowel sounds. Absent: mass - Integumentary Integumentary: Present: clear, warm, dry, decreased turgor. Absent: rash - Musculoskeletal Musculoskeletal: strength equal bilaterally - Psychiatric Psychiatric: appropriate mood/affect, intact judgment & insight, memory intact, cooperative - Neurologic Neurologic: CNII-XII intact, no focal deficits, moves all extremities, other (Head tilted to the right.) - Additional findings Additional findings: Skin: Sacral Decubitus,Right elbow decubitus ulcer HEART Score - HEART Score Troponin: Troponin T 0.042 ng/mL (0.00-0.029) H 03/24/21 01:05 Results - Labs CBC & Chem 7: 03/24/21 01:05 03/24/21 01:05 Labs: Abnormal lab results 03/24/21 03/24/21 03/24/21 Range/Units 01:05 01:05 01:05 WBC 14.9 H (4.5-11.0) K/mm3 RBC 3.58 L (3.65-5.03) M/mm3 RDW 15.7 H (13.2-15.2) % Plt Count 668 H (140-440) K/mm3 Lymph % (Auto) 7.2 L (13.4-35.0) % Lymph # (Auto) 1.1 L (1.2-5.4) K/mm3 Hamilton # (Auto) 1.0 H (0.0-0.8) K/mm3 Seg Neutrophils % 85.5 H (40.0-70.0) % Seg Neutrophils # 12.8 H (1.8-7.7) K/mm3 PT 16.4 H (12.2-14.9) Sec. INR 1.27 H (0.87-1.13) Sodium 132 L (137-145) mmol/L Potassium 6.2 H* (3.6-5.0) mmol/L Carbon Dioxide 13 L (22-30) mmol/L BUN 84 H (7-17) mg/dL Creatinine 4.1 H (0.6-1.2) mg/dL Glucose 162 H (65-100) mg/dL Lactic Acid (0.7-2.0) mmol/L Calcium 8.2 L (8.4-10.2) mg/dL Phosphorus 6.00 H (2.5-4.5) mg/dL AST 41 H (5-40) units/L Total Creatine Kinase 1055 H (30-135) units/L Troponin T 0.042 H (0.00-0.029) ng/mL Albumin 2.5 L (3.9-5) g/dL LDL Cholesterol Direct 21 L (50-130) mg/dL Salicylates (2.8-20.0) mg/dL Acetaminophen (10.0-30.0) ug/mL 03/24/21 03/24/21 03/24/21 Range/Units 01:05 01:05 01:05 WBC (4.5-11.0) K/mm3 RBC (3.65-5.03) M/mm3 RDW (13.2-15.2) % Plt Count (140-440) K/mm3 Lymph % (Auto) (13.4-35.0) % Lymph # (Auto) (1.2-5.4) K/mm3 Hamilton # (Auto) (0.0-0.8) K/mm3 Seg Neutrophils % (40.0-70.0) % Seg Neutrophils # (1.8-7.7) K/mm3 PT (12.2-14.9) Sec. INR (0.87-1.13) Sodium (137-145) mmol/L Potassium (3.6-5.0) mmol/L Carbon Dioxide (22-30) mmol/L BUN (7-17) mg/dL Creatinine (0.6-1.2) mg/dL Glucose (65-100) mg/dL Lactic Acid 4.30 H* (0.7-2.0) mmol/L Calcium (8.4-10.2) mg/dL Phosphorus (2.5-4.5) mg/dL AST (5-40) units/L Total Creatine Kinase (30-135) units/L Troponin T (0.00-0.029) ng/mL Albumin (3.9-5) g/dL LDL Cholesterol Direct (50-130) mg/dL Salicylates < 0.3 L (2.8-20.0) mg/dL Acetaminophen 5.0 L (10.0-30.0) ug/mL 03/24/21 Range/Units 03:16 WBC (4.5-11.0) K/mm3 RBC (3.65-5.03) M/mm3 RDW (13.2-15.2) % Plt Count (140-440) K/mm3 Lymph % (Auto) (13.4-35.0) % Lymph # (Auto) (1.2-5.4) K/mm3 Hamilton # (Auto) (0.0-0.8) K/mm3 Seg Neutrophils % (40.0-70.0) % Seg Neutrophils # (1.8-7.7) K/mm3 PT (12.2-14.9) Sec. INR (0.87-1.13) Sodium (137-145) mmol/L Potassium (3.6-5.0) mmol/L Carbon Dioxide (22-30) mmol/L BUN (7-17) mg/dL Creatinine (0.6-1.2) mg/dL Glucose (65-100) mg/dL Lactic Acid 3.30 H* (0.7-2.0) mmol/L Calcium (8.4-10.2) mg/dL Phosphorus (2.5-4.5) mg/dL AST (5-40) units/L Total Creatine Kinase (30-135) units/L Troponin T (0.00-0.029) ng/mL Albumin (3.9-5) g/dL LDL Cholesterol Direct (50-130) mg/dL Salicylates (2.8-20.0) mg/dL Acetaminophen (10.0-30.0) ug/mL Assessment and Plan - Patient Problems (1) Acute renal failure Current Visit: Yes Status: Acute Plan to address problem: Possibly secondary to decreased oral intake. Patient has been started on IV fluid. Will monitor BUN and creatinine. Consult placed to nephrology for evaluation (2) Rhabdomyolysis Current Visit: Yes Status: Acute Plan to address problem: Patient placed on generous IV fluid We will monitor CPK levels. We will await nephrology evaluation (3) Acute hyperkalemia Current Visit: Yes Status: Acute Plan to address problem: Patient has received insulin and glucose, calcium chloride , sodium bicarb and nebulizing treatments. We will monitor potassium level and also monitor EKG. Nephrology evaluation requested. (4) Failure to thrive Current Visit: Yes Status: Acute Plan to address problem: We will request dietary consult. Will await further recommendation. (5) DVT prophylaxis Current Visit: Yes Status: Acute Plan to address problem: Patient placed on subcutaneous heparin. (6) Full code status Current Visit: Yes Status: Acute Plan to address problem: Patient is full code.
[2021-03-24 04:42] LABS: Bacteria,Urine 4+ /HPF (Negative); Bilirubin,Urine NEG (Negative); Blood,Urine SM (Negative); Color,Urine Yellow (Yellow); Protein,Urine <15 mg/dL mg/dL (Negative); Urobilinogen,Urine < 2.0 mg/dL (<2.0)
--- NOTE | 2021-03-24 05:24 | XRay Report ---
CHEST 1 VIEW 03/24/2021 4:50 AM INDICATION / CLINICAL INFORMATION: weakness. COMPARISON: None available. FINDINGS: SUPPORT DEVICES: None. HEART / MEDIASTINUM: No significant abnormality. LUNGS / PLEURA: Moderately elevated right hemidiaphragm with right lung base atelectasis. Left lung i s clear. No pneumothorax. ADDITIONAL FINDINGS: No significant additional findings. IMPRESSION: 1. Right lung base atelectasis. Signer Name: Jie Sutherland MD Signed: 03/24/2021 5:19 AM Workstation Name: [id number]
[2021-03-24] MEDS ORDERED: cefTRIAXone/NS 1 GM/50 ML 1 GM/50 ML BAG IV SCH (06:00)
[2021-03-24] MEDS ORDERED: SODIUM BICARB 8.4% 50 MEQ/50 ML SYRINGE IV ONE (06:10)
[2021-03-24] MEDS: HEPARIN 5,000 UNIT/1 ML VIAL SUB-Q SCH ×3 (06:12→23:13)
[2021-03-24] MEDS ORDERED: SODIUM POLYSTYRENE 15 GM/60 ML ORAL LIQD PO ONE (06:30)
[2021-03-24] MEDS ORDERED: SODIUM CHLORIDE 0.9% 500 ML 500 ML IV ONE (07:02)
[2021-03-24] MEDS ORDERED: NORepinephrine/NS 4 MG-250 ML 4 MG/250 ML BAG IV ONE (07:37)
[2021-03-24] MEDS: NORepinephrine/NS 4 MG-250 ML 4 MG/250 ML BAG IV SCH ×3 (08:00→22:36)
[2021-03-24] MEDS ORDERED: NORepinephrine/NS 4 MG-250 ML 4 MG/250 ML BAG IV SCH (09:00)
[2021-03-24] MEDS ORDERED: HYDROmorphone 1 MG/1 ML INJ IV PRN (11:44)
[2021-03-24] MEDS ORDERED: [UNRECOGNIZED DRUG - OTHER] PO PRN (11:46)
[2021-03-24] MEDS ORDERED: SODIUM CHLORIDE 0.9% 1000 ML IV SOLN IV ONE (12:30)
--- NOTE | 2021-03-24 13:52 | Ultrasound Report ---
ULTRASOUND RENAL INDICATION / CLINICAL INFORMATION: RAUDEL. COMPARISON: None available. FINDINGS: RIGHT KIDNEY: Length = 10.1 cm. [normal > 9 cm] - Parenchymal Thickness = 1.4 cm. [normal > 1.5 cm] - Echogenicity: Slightly increased - Hydronephrosis: None. - Cyst or mass: No significant abnormality. - Stones: None seen. LEFT KIDNEY: Length = 10.4 cm. [normal > 9 cm] - Parenchymal Thickness = 1.3 cm. [normal > 1.5 cm] - Echogenicity: Slightly increased - Hydronephrosis: None. - Cyst or mass: No significant abnormality. - Stones: None seen. URINARY BLADDER: No significant abnormality. FREE FLUID: Small perisplenic ascites of uncertain origin is noted. ADDITIONAL FINDINGS: None. IMPRESSION: Slightly echogenic kidneys consistent with medical renal disease. No hydronephrosis. Small perisplenic ascites. Signer Name: Khang Bae Jr, MD Signed: 03/24/2021 1:47 PM Workstation Name: [id number]
[2021-03-24] MEDS: DOPamine/D5W 800 MG/250 ML 800 MG/250 ML BAG IV SCH ×2 (15:11→17:12)
[2021-03-24 15:58] LABS: Chloride, Urine 14.2 mmolL (110-250); Creatinine,Urine 133.8 mg/dL (0.1-20.0)
--- NOTE | 2021-03-24 15:58 | Consultation ---
History of Present Illness - Reason for Consult acute renal failure - History of Present Illness elderly 75-year-old female with past medical history significant for hypertension, arthritis, GERD, who presented to the emergency department brought in by son secondary to worsening weakness, fatigue, and failure to thrive. Patient is a very poor historian unable to really communicate at this time and most of the information was obtained by review of clinical data and documentation. Unfortunately son was also not available at bedside for further questions. Upon my evaluation she was already started on levophed secondary to worsening hypotension and pressor requirement needs. Nephrology was consulted secondary to acute kidney injury with unclear baseline kidney function. Renal ultrasound was done which did not show any acute abnormalities. Past History Past Medical History: arthritis, GERD, hypertension Past Surgical History: No surgical history Social history: no significant social history Family history: no significant family history Medications and Allergies Allergies Allergy/AdvReac Type Severity Reaction Status Date / Time No Known Allergies Allergy Unverified 12/24/16 14:55 Home Medications Medication Instructions Recorded Confirmed Last Taken Type Amlodipine Besylate/Benazepril 1 each PO QDAY 12/15/16 12/24/16 12/30/16 06:00 History [Lotrel 10-40 mg] AtorvaSTATin [Lipitor] 20 mg PO QDAY 12/15/16 12/24/16 12/29/16 History FLUoxetine [PROzac] 20 mg PO QDAY 12/15/16 12/24/16 12/29/16 History Glimepiride [Amaryl] 2 mg PO BID 12/15/16 12/24/16 12/29/16 History Goody's Ex-Str Powder Packet 1 packet PO QDAY PRN 12/15/16 12/24/16 12/29/16 History Metformin HCl [Glucophage] 1,000 mg PO BID 12/15/16 12/24/16 12/29/16 History Triamter/Hctz 37.5-25 mg 0.5 tab PO QDAY 12/15/16 12/24/16 12/30/16 06:00 History [Maxzide-25] Active Meds: Active Medications Acetaminophen (Acetaminophen 325 Mg Tab) 650 mg PO Q4H PRN PRN Reason: Pain MILD(1-3)/Fever >100.5/[place] Acetaminophen (Acetaminophen 325 Mg Tab) 650 mg PO Q6H PRN PRN Reason: Pain, Mild (1-3) Atorvastatin Calcium (Atorvastatin 20 Mg Tab) 20 mg PO QDAY DAMI Fluoxetine HCl (Fluoxetine 20 Mg Cap) 20 mg PO QDAY DAMI Heparin Sodium (Porcine) (Heparin 5,000 Unit/1 Ml Vial) 5,000 unit SUB-Q Q8HR [facility] Last Admin: 03/24/21 06:12 Dose: 5,000 unit Documented by: Hydromorphone HCl (Hydromorphone 1 Mg/1 Ml Inj) 0.25 mg IV Q4H PRN PRN Reason: Pain, Moderate (4-6) Sodium Chloride (Nacl 0.9% 1000 Ml) 1,000 mls @ 150 mls/hr IV DIRECT DAMI Norepinephrine (Levophed Drip 4 Mg/Ns 250 Ml) 4 mg in 250 mls @ 18.75 mls/hr IV TITR DAMI; Protocol Last Admin: 03/24/21 08:00 Dose: 5 mcg/min, 18.75 mls/hr Documented by: Cefepime HCl (Cefepime/Ns 2 Gm/100 Ml) 2 gm in 100 mls @ 200 mls/hr IV Q24H DAMI; Protocol Dopamine HCl/Dextrose (Intropin Drip 800 Mg/D5w 250 Ml) 800 mg in 250 mls @ 2.041 mls/hr IV TITR DAMI; Protocol Last Admin: 03/24/21 15:11 Dose: 2 mcg/kg/min, 2.041 mls/hr Documented by: Magnesium Hydroxide (Magnesium Hydroxide (Mom) Oral Liqd Udc) 30 ml PO Q4H PRN PRN Reason: Constipation Morphine Sulfate (Morphine 2 Mg/1 Ml Inj) 2 mg IV Q4H PRN PRN Reason: Pain, Moderate (4-6) Morphine Sulfate (Morphine 4 Mg/1 Ml Inj) 4 mg IV Q4H PRN PRN Reason: Pain , Severe (7-10) Ondansetron HCl (Ondansetron 4 Mg/2 Ml Inj) 4 mg IV Q8H PRN PRN Reason: Nausea And Vomiting Sodium Chloride (Sodium Chloride 0.9% 10 Ml Flush Syringe) 10 ml IV BID ADMI Sodium Chloride (Sodium Chloride 0.9% 10 Ml Flush Syringe) 10 ml IV PRN PRN PRN Reason: LINE FLUSH Review of Systems ROS unobtainable: due to mental status Exam - Vital Signs Vital signs: Vital Signs Temp Pulse Resp BP Pulse Ox 98.5 F 96 H 12 96/36 93 03/24/21 02:45 03/24/21 02:45 03/24/21 02:45 03/24/21 02:45 03/24/21 02:45 - General Appearance General appearance: chronically ill, frail EENT: ATNC Neck: Present: neck supple Respiratory: Clear to Ascultation Heart: regular Gastrointestinal: Present: normal Integumentary: warm and dry Musculoskeletal: Present: deferred Results - Lab Results 03/24/21 01:05 03/24/21 01:05 Most recent lab results Calcium 8.2 mg/dL (8.4-10.2) L 03/24/21 01:05 Phosphorus 6.00 mg/dL (2.5-4.5) H 03/24/21 01:05 Magnesium 2.20 mg/dL (1.7-2.3) 03/24/21 01:05 Assessment and Plan - Patient Problems (1) Acute renal failure Current Visit: Yes Status: Acute Plan to address problem: likely prerenal in nature secondary to worsening failure to thrive and decreased oral intake. Agree with gentle IV fluid hydration and pressor support in order to maintain hemodynamic stability and mean arterial pressures above 65 mmHg. Please avoid all nephrotoxins. Renal ultrasound reviewed without any acute abnormalities. Urine electrolytes ordered. Will monitor closely. (2) Acute hyperkalemia Current Visit: Yes Status: Acute Plan to address problem: pending repeat labs at this time. This is in the setting of acute kidney injury. Patient has already received insulin, D50, and calcium gluconate in the emergency room department. Follow up on repeat labs. Please maintain a low potassium diet. (3) Hypotension Current Visit: Yes Status: Acute Plan to address problem: patient initiated on pressor support with levophed. Avoid all antihypertensive medication at this time. We will continue to closely monitor. Blood cultures pending at this time. (4) Failure to thrive Current Visit: Yes Status: Acute Plan to address problem: continue with gentle IV fluid hydration. Would likely benefit from nutritional consult for further evaluation and assessment. (5) Rhabdomyolysis Current Visit: Yes Status: Acute Plan to address problem: mild rhabdomyolysis noted. Will follow-up levels post hydration. We will c ontinue to monitor closely.
[2021-03-24] MEDS: CEFEPIME/NS 2 GM/100 ML 2 GM/100 ML BAG IV SCH (16:30)
--- NOTE | 2021-03-24 16:32 | Procedure Note ---
Date of procedure: 03/24/21 - Procedure Description Procedures done: Right femoral central line placed with persistent hypotension requires vasopressor support - Central Line Placement Right Femoral Consent Obtained: verbal consent, emergent situation Time Out Performed: Yes Patient Placed on Monitor/Pulse Ox: Yes Prep: mask, gown, gloves Central Line Prep: sterile drapes applied Local Anesthesia Used: Lidocaine 1% Amount of Anesthesia Used (mls): 5 Ultrasound Used for Placement: No Reason for Insertion: Volume Resuscitation Bloods Obtained for Lab: No Central Line Position: good blood return, all ports aspirated, flus, sutured in place with nyl Dressing Applied: Tegaderm Patient Tolerated Procedure: well Complications: none
--- NOTE | 2021-03-24 18:11 | Electrocardiograph Report ---
[facility] Test Date: 2021-03-24 Test Time: 04:12:05 Pat Name: ANMOL VASQUEZ Department: Room: [place] [address] Gender: F Certified Appliance Service Technician: : 1945 Requested By: VICENTE ROBERTS Order Number: [id number] Reading MD: Antonia Clifton Measurements Intervals [place] Rate: 100 P: [place]: QRS: -68 QRSD: 97 T: 68 QT: 370 QTc: 477 Interpretive Statements Sinus rhythm with frequent PACs, consider multifocal atrial rhythm Left axis deviation Anterolateral infarct, old Low voltage QRS No previous ECG available for comparison Electronically Signed On 03-24-2021 18:11:02 EDT by Antonia Clifton
[2021-03-25] MEDS: NORepinephrine/NS 4 MG-250 ML 4 MG/250 ML BAG IV SCH ×2 (01:17→05:06)
[2021-03-25 05:39] LABS: Basophils % (Auto) 0.1 % (0.0-1.8); Hematocrit 29.2 % (30.3-42.9); Hemoglobin 9.3 gm/dl (10.1-14.3); Lymphocytes # (Auto) 0.9 K/mm3 (1.2-5.4); Lymphocytes % (Auto) 5.6 % (13.4-35.0); Mean Corpuscular HGB Conc 32 % (30-34); Mean Corpuscular Volume 85 fl (79-97); Monocytes % (Auto) 6.4 % (0.0-7.3); Platelet Count 733 K/mm3 (140-440); Red Blood Count 3.45 M/mm3 (3.65-5.03); Red Cell Distribution Width 15.9 % (13.2-15.2)
[2021-03-25 05:59] LABS: Calcium 7.4 mg/dL (8.4-10.2)
[2021-03-25 06:17] LABS: INR 1.35 (0.87-1.13)
[2021-03-25] MEDS: HEPARIN 5,000 UNIT/1 ML VIAL SUB-Q SCH ×4 (07:51→22:30)
[2021-03-25] MEDS ORDERED: NORepinephrine/NS 8 MG-250 ML 8 MG/250 ML INFUS..BTL IV SCH (11:00)
[2021-03-25] MEDS: FLUoxetine 20 MG CAP PO SCH (11:16)
[2021-03-25] MEDS ORDERED: DEXTROSE 5% IN WATER 1,000 ML with SODIUM BICARBONATE 150 MEQ IV SCH (12:00)
[2021-03-25] MEDS ORDERED: DOPamine/D5W 800 MG/250 ML 800 MG/250 ML BAG IV SCH (12:00)
--- NOTE | 2021-03-25 12:13 | Progress Note ---
Assessment and Plan - Patient Problems (1) Acute renal failure Current Visit: Yes Status: Acute Plan to address problem: likely prerenal in nature secondary to worsening failure to thrive and decreased oral intake. Agree with gentle IV fluid hydration and pressor support in order to maintain hemodynamic stability and mean arterial pressures above 65 mmHg. Will adjust current IVF to D5W w/ 150 meq NaHCO3 at 75 cc/hr. Please avoid all nephrotoxins. Renal ultrasound reviewed without any acute abnormalities. Urine electrolytes ordered. Will monitor closely. (2) Acute hyperkalemia Current Visit: Yes Status: Acute Plan to address problem: Showing improvement this am. This is in the setting of acute kidney injury. Please maintain a low potassium diet. (3) Hypotension Current Visit: Yes Status: Acute Plan to address problem: patient initiated on pressor support with levophed. Avoid all antihypertensive medication at this time. We will continue to closely monitor. Blood cultures pending at this time. (4) Failure to thrive Current Visit: Yes Status: Acute Plan to address problem: continue with gentle IV fluid hydration. Would likely benefit from nutritional consult for further evaluation and assessment. (5) Rhabdomyolysis Current Visit: Yes Status: Acute Plan to address problem: mild rhabdomyolysis noted. Will follow-up levels post hydration. We will continue to monitor closely. Subjective Date of service: 03/25/21 Interval history: No acute changes. Remains on pressor support. Labs reviewed, and renal function stable with slight improvement. Objective - Vital Signs Vital signs: Vital Signs - 12hr 03/25/21 03/25/21 03/25/21 01:00 02:01 03:01 Temperature Pulse Rate 115 H 119 H 116 H Respiratory 33 H 34 H 34 H Rate Blood Pressure 114/37 140/117 113/31 Blood Pressure [Left] O2 Sat by Pulse 97 97 97 Oximetry 03/25/21 03/25/21 03/25/21 04:01 05:17 06:01 Temperature Pulse Rate 108 H 106 H 113 H Respiratory 17 28 H 21 Rate Blood Pressure 122/62 108/84 Blood Pressure 112/42 [Left] O2 Sat by Pulse 96 98 94 Oximetry 03/25/21 03/25/21 03/25/21 07:01 07:44 08:01 Temperature Pulse Rate 118 H 119 H 122 H Respiratory 22 20 23 Rate Blood Pressure 142/53 108/78 Blood Pressure 137/99 [Left] O2 Sat by Pulse 98 97 97 Oximetry 03/25/21 03/25/21 03/25/21 08:43 09:01 10:01 Temperature Pulse Rate 122 H 120 H Respiratory 18 44 H 17 Rate Blood Pressure 108/78 121/62 Blood Pressure [Left] O2 Sat by Pulse 97 97 95 Oximetry 03/25/21 03/25/21 03/25/21 10:15 10:31 10:45 Temperature Pulse Rate 117 H 117 H 117 H Respiratory 13 16 19 Rate Blood Pressure 121/62 104/67 117/33 Blood Pressure [Left] O2 Sat by Pulse 96 96 97 Oximetry 03/25/21 03/25/21 03/25/21 11:01 11:15 11:31 Temperature Pulse Rate 120 H 113 H 114 H Respiratory 22 25 H 35 H Rate Blood Pressure 77/42 77/42 77/42 Blood Pressure [Left] O2 Sat by Pulse 97 98 99 Oximetry 03/25/21 03/25/21 11:35 12:08 Temperature 98.6 F 98.6 F Pulse Rate 115 H 112 H Respiratory 22 22 Rate Blood Pressure Blood Pressure 104/38 124/46 [Left] O2 Sat by Pulse 98 98 Oximetry - General Appearance General appearance: chronically ill, frail EENT: ATNC Neck: no JVD Respiratory: Present: Clear to Ascultation Cardiology: regular Gastrointestinal: normal Integumentary: warm and dry Musculoskeletal: deferred - Lab 03/25/21 04:37 03/25/21 04:37 Most recent lab results Calcium 7.4 mg/dL (8.4-10.2) L 03/25/21 04:37 Phosphorus 6.00 mg/dL (2.5-4.5) H 03/24/21 01:05 Magnesium 2.20 mg/dL (1.7-2.3) 03/24/21 01:05 Urine Creatinine 133.8 mg/dL (0.1-20.0) H 03/24/21 15:26 Urine Sodium 26 mmol/L 03/24/21 15:26 Medications & Allergies - Medications Allergies/Adverse Reactions: Allergies No Known Allergies Allergy (Unverified 12/24/16 14:55) Home Medications: Home Medications Medication Instructions Recorded Confirmed Last Taken Type Amlodipine Besylate/Benazepril 1 each PO QDAY 12/15/16 12/24/16 12/30/16 06:00 History [Lotrel 10-40 mg] AtorvaSTATin [Lipitor] 20 mg PO QDAY 12/15/16 12/24/16 12/29/16 History FLUoxetine [PROzac] 20 mg PO QDAY 12/15/16 12/24/16 12/29/16 History Glimepiride [Amaryl] 2 mg PO BID 12/15/16 12/24/16 12/29/16 History Goody's Ex-Str Powder Packet 1 packet PO QDAY PRN 12/15/16 12/24/16 12/29/16 History Metformin HCl [Glucophage] 1,000 mg PO BID 12/15/16 12/24/16 12/29/16 History Triamter/Hctz 37.5-25 mg 0.5 tab PO QDAY 12/15/16 12/24/16 12/30/16 06:00 History [Maxzide-25] Active Medications: Generic Name Dose Route Start Last Admin Trade Name Freq PRN Reason Stop Dose Admin Acetaminophen 650 mg 03/24/21 11:44 Acetaminophen 325 Mg Tab PO Q6H PRN Pain, Mild (1-3) Atorvastatin Calcium 20 mg 03/25/21 10:00 03/25/21 11:16 Atorvastatin 20 Mg Tab PO 20 mg QDAY DAMI Administration Fluoxetine HCl 20 mg 03/25/21 10:00 03/25/21 11:16 Fluoxetine 20 Mg Cap PO 20 mg QDAY DAMI Administration Heparin Sodium (Porcine) 5,000 unit 03/24/21 06:00 03/25/21 08:29 Heparin 5,000 Unit/1 Ml Vial SUB-Q 5,000 unit Q8HR DAMI Administration Hydromorphone HCl 0.25 mg 03/24/21 11:44 Hydromorphone 1 Mg/1 Ml Inj IV Q4H PRN Pain, Moderate (4-6) Cefepime HCl 2 gm in 100 mls @ 200 mls/hr 03/24/21 13:00 03/24/21 16:30 Cefepime/Ns 2 Gm/100 Ml IV 200 mls/hr Q24H DAMI Administration Protocol NORepinephrine/NS 8 MG-250 ML 8 mg in 250 mls @ 3.75 mls/hr 03/25/21 11:00 Norepinephrine/Ns 8 Mg-250 Ml (Double Conc) IV TITRATE DAMI Protocol 2 MCG/MIN Sodium Bicarbonate 150 meq/ 1,150 mls @ 75 mls/hr 03/25/21 12:00 Dextrose IV DIRECT DAMI Dopamine HCl/Dextrose 800 mg in 250 mls @ 2.041 mls/hr 03/25/21 12:00 Intropin Drip 800 Mg/D5w 250 Ml IV TITR DAMI Protocol 2 MCG/KG/MIN Magnesium Hydroxide 30 ml 03/24/21 04:27 Magnesium Hydroxide (Mom) Oral Liqd Udc PO Q4H PRN Constipation Morphine Sulfate 4 mg 03/24/21 04:27 Morphine 4 Mg/1 Ml Inj IV Q4H PRN Pain , Severe (7-10) Ondansetron HCl 4 mg 03/24/21 04:27 Ondansetron 4 Mg/2 Ml Inj IV Q8H PRN Nausea And Vomiting Sodium Chloride 10 ml 03/24/21 10:00 03/25/21 11:17 Sodium Chloride 0.9% 10 Ml Flush Syringe IV 10 ml BID DAMI Administration Sodium Chloride 10 ml 03/24/21 04:27 Sodium Chloride 0.9% 10 Ml Flush Syringe IV PRN PRN LINE FLUSH
--- NOTE | 2021-03-25 13:31 | Progress Note ---
Assessment and Plan - Patient Problems (1) Sepsis Current Visit: Yes Status: Acute Qualifiers: Severe sepsis acute organ dysfunction type: acute renal failure Plan to address problem: Sepsis Protocol: CBC, CMP, IV fluid resuscitation therapy, IV antibiotic therapy, IV pressor support, maintain mean arterial pressure greater than or equal to 65, monitor urine output every shift, blood culture, The high probability of a clinically significant, sudden or life threatening deterioration of the [neuro, renal, infectious disease] system(s) required my full and direct attention, intervention and personal management. The aggregate critical care time was [65] minutes. This time is in addition to time spent performing reported procedures but includes the following: [x] Data Review and interpretation [x] Patient assessment and monitoring of vital signs [x] Documentation [x] Medication orders and management (2) Toxic metabolic encephalopathy Current Visit: Yes Status: Acute Plan to address problem: Treat sepsis, IV fluid resuscitation therapy, neuro check, aspiration precautions, fall precautions (3) Acute kidney injury (RAUDEL) with acute tubular necrosis (ATN) Current Visit: Yes Status: Acute Plan to address problem: IV fluid resuscitation therapy, BMP, BMP in a.m. to monitor serum creatinine, as well as GFR. Monitor urine output every shift (4) Rhabdomyolysis Current Visit: Yes Status: Acute Qualifiers: Encounter type: initial encounter Plan to address problem: CK level, IV fluid resuscitation therapy, repeat CK in a.m., supportive care. (5) DVT prophylaxis Current Visit: Yes Status: Acute Plan to address problem: SCD to bilateral lower extremities while in bed, prophylactic anticoagulation (6) Advance care planning Current Visit: Yes Status: Acute Plan to address problem: Disease education conducted, care plan discussed, diagnosis discussed, prognosis discussed, patient is full code, +30 minutes. History Interval history: 75 YO Female HD #2 with UTI complicated by Sepsis on pressor support, toxic metabolic encephalopathy, acute kidney injury, rhabdomyolysis, debility. Patient continues to have episodes of hypotension. Patient minimally responsive to fluid bolus. Patient continues to be lethargic with diminished cognition. Hospitalist Physical - Constitutional Vitals: Temp Pulse Resp BP Pulse Ox 98.6 F 112 H 22 124/46 98 03/25/21 12:08 03/25/21 12:08 03/25/21 12:08 03/25/21 12:08 03/25/21 12:08 General appearance: Present: no acute distress, cachectic - EENT Eyes: Present: PERRL ENT: hearing decreased - Neck Neck: Present: supple - Respiratory Respiratory effort: normal Respiratory: bilateral: diminished - Cardiovascular Rhythm: regular Heart Sounds: Present: S1 & S2 - Extremities Extremities: no ischemia Peripheral Pulses: abnormal (Capillary refill greater than 3.5 seconds) - Abdominal General gastrointestinal: soft, non-tender, non-distended - Integumentary Integumentary: Present: clear, dry, clammy, decreased turgor - Psychiatric Psychiatric: no appropriate mood/affect, no intact judgment & insight, no memory intact, agitated - Neurologic Neurologic: CNII-XII intact, no focal deficits, moves all extremities, no gait normal HEART Score - HEART Score Troponin: Troponin T 0.042 ng/mL (0.00-0.029) H 03/24/21 01:05 Results - Labs CBC & Chem 7: 03/25/21 04:37 03/25/21 04:37 Labs: Laboratory Last Values WBC 15.7 K/mm3 (4.5-11.0) H 03/25/21 04:37 RBC 3.45 M/mm3 (3.65-5.03) L 03/25/21 04:37 Hgb 9.3 gm/dl (10.1-14.3) L 03/25/21 04:37 Hct 29.2 % (30.3-42.9) L 03/25/21 04:37 MCV 85 fl (79-97) 03/25/21 04:37 MCH 27 pg (28-32) L 03/25/21 04:37 MCHC 32 % (30-34) 03/25/21 04:37 RDW 15.9 % (13.2-15.2) H 03/25/21 04:37 Plt Count 733 K/mm3 (140-440) H 03/25/21 04:37 Lymph % (Auto) 5.6 % (13.4-35.0) L 03/25/21 04:37 [place] % (Auto) 6.4 % (0.0-7.3) 03/25/21 04:37 Eos % (Auto) 0.0 % (0.0-4.3) 03/25/21 04:37 Baso % (Auto) 0.1 % (0.0-1.8) 03/25/21 04:37 Lymph # (Auto) 0.9 K/mm3 (1.2-5.4) L 03/25/21 04:37 [place] # (Auto) 1.0 K/mm3 (0.0-0.8) H 03/25/21 04:37 Eos # (Auto) 0.0 K/mm3 (0.0-0.4) 03/25/21 04:37 Baso # (Auto) 0.0 K/mm3 (0.0-0.1) 03/25/21 04:37 Seg Neutrophils % 87.9 % (40.0-70.0) H 03/25/21 04:37 Seg Neutrophils # 13.8 K/mm3 (1.8-7.7) H 03/25/21 04:37 PT 17.2 Sec. (12.2-14.9) H 03/25/21 04:37 INR 1.35 (0.87-1.13) H 03/25/21 04:37 Sodium 138 mmol/L (137-145) 03/25/21 04:37 Potassium 5.5 mmol/L (3.6-5.0) H 03/25/21 04:37 Chloride 107.8 mmol/L (98-107) H 03/25/21 04:37 Carbon Dioxide 10 mmol/L (22-30) L 03/25/21 04:37 Anion Gap 26 mmol/L 03/25/21 04:37 BUN 90 mg/dL (7-17) H 03/25/21 04:37 Creatinine 3.9 mg/dL (0.6-1.2) H 03/25/21 04:37 Estimated GFR 11 ml/min 03/25/21 04:37 BUN/Creatinine Ratio 23 % 03/25/21 04:37 Glucose 200 mg/dL (65-100) H 03/25/21 04:37 POC Glucose 189 mg/dL (70-105) H 03/25/21 07:57 Lactic Acid 2.00 mmol/L (0.7-2.0) 03/24/21 12:24 Calcium 7.4 mg/dL (8.4-10.2) L 03/25/21 04:37 Phosphorus 6.00 mg/dL (2.5-4.5) H 03/24/21 01:05 Magnesium 2.20 mg/dL (1.7-2.3) 03/24/21 01:05 Total Bilirubin 0.20 mg/dL (0.1-1.2) 03/24/21 01:05 AST 41 units/L (5-40) H 03/24/21 01:05 ALT 27 units/L (7-56) 03/24/21 01:05 Alkaline Phosphatase 111 units/L (35-129) 03/24/21 01:05 Total Creatine Kinase 985 units/L (30-135) H 03/24/21 12:24 Troponin T 0.042 ng/mL (0.00-0.029) H 03/24/21 01:05 Total Protein 6.8 g/dL (6.3-8.2) 03/24/21 01:05 Albumin 2.5 g/dL (3.9-5) L 03/24/21 01:05 Albumin/Globulin Ratio 0.6 % 03/24/21 01:05 Triglycerides 95 mg/dL (2-149) 03/24/21 01:05 Cholesterol 76 mg/dL (50-199) 03/24/21 01:05 LDL Cholesterol Direct 21 mg/dL (50-130) L 03/24/21 01:05 HDL Cholesterol 42 mg/dL (40-59) 03/24/21 01:05 Cholesterol/HDL Ratio 1.80 % 03/24/21 01:05 TSH 2.490 mlU/mL (0.270-4.200) 03/24/21 01:05 Urine Color Yellow (Yellow) 03/24/21 04:26 Urine Turbidity Clear (Clear) 03/24/21 04:26 Urine pH 5.0 (5.0-7.0) 03/24/21 04:26 Ur Specific [place] 1.015 (1.003-1.030) 03/24/21 04:26 Urine Protein <15 mg/dl mg/dL (Negative) 03/24/21 04:26 Urine Glucose (UA) Neg mg/dL (Negative) 03/24/21 04:26 Urine Ketones Neg mg/dL (Negative) 03/24/21 04:26 Urine Blood Sm (Negative) 03/24/21 04:26 Urine Nitrite Neg (Negative) 03/24/21 04:26 Urine Bilirubin Neg (Negative) 03/24/21 04:26 Urine Urobilinogen < 2.0 mg/dL (<2.0) 03/24/21 04:26 Ur Leukocyte Esterase Lg (Negative) 03/24/21 04:26 Urine WBC (Auto) 21.0 /HPF (0.0-6.0) H 03/24/21 04:26 Urine RBC (Auto) 1.0 /HPF (0.0-6.0) 03/24/21 04:26 U Epithel Cells (Auto) 1.0 /HPF (0-13.0) 03/24/21 04:26 Urine Bacteria (Auto) 4+ /HPF (Negative) 03/24/21 04:26 Urine Creatinine 133.8 mg/dL (0.1-20.0) H 03/24/21 15:26 Urine Sodium 26 mmol/L 03/24/21 15:26 Urine Chloride 14.2 mmolL (110-250) L 03/24/21 15:26 Salicylates < 0.3 mg/dL (2.8-20.0) L 03/24/21 01:05 Acetaminophen 5.0 ug/mL (10.0-30.0) L 03/24/21 01:05 Blood Type A POSITIVE 03/24/21 12:24 Antibody Screen Negative 03/24/21 12:24 Microbiology: Microbiology 03/24/21 12:24 Peripheral/Venous Blood Culture - Preliminary NO GROWTH AFTER 24 HOURS 03/24/21 12:49 Peripheral/Venous Blood Culture - Preliminary NO GROWTH AFTER 24 HOURS 03/24/21 04:26 Urine,Clean Catch Urine Culture - Preliminary Active Medications - Current Medications Current Medications: Generic Name Dose Route Start Last Admin Trade Name Freq PRN Reason Stop Dose Admin Acetaminophen 650 mg 03/24/21 11:44 Acetaminophen 325 Mg Tab PO Q6H PRN Pain, Mild (1-3) Atorvastatin Calcium 20 mg 03/25/21 10:00 03/25/21 11:16 Atorvastatin 20 Mg Tab PO 20 mg QDAY DAMI Administration Fluoxetine HCl 20 mg 03/25/21 10:00 03/25/21 11:16 Fluoxetine 20 Mg Cap PO 20 mg QDAY DAMI Administration Heparin Sodium (Porcine) 5,000 unit 03/24/21 06:00 03/25/21 08:29 Heparin 5,000 Unit/1 Ml Vial SUB-Q 5,000 unit Q8HR DAMI Administration Hydromorphone HCl 0.25 mg 03/24/21 11:44 Hydromorphone 1 Mg/1 Ml Inj IV Q4H PRN Pain, Moderate (4-6) Cefepime HCl 2 gm in 100 mls @ 200 mls/hr 03/24/21 13:00 03/24/21 16:30 Cefepime/Ns 2 Gm/100 Ml IV 200 mls/hr Q24H DAMI Administration Protocol NORepinephrine/NS 8 MG-250 ML 8 mg in 250 mls @ 3.75 mls/hr 03/25/21 11:00 Norepinephrine/Ns 8 Mg-250 Ml (Double Conc) IV TITRATE DAMI Protocol 2 MCG/MIN Sodium Bicarbonate 150 meq/ 1,150 mls @ 75 mls/hr 03/25/21 12:00 Dextrose IV DIRECT DAMI Dopamine HCl/Dextrose 800 mg in 250 mls @ 2.041 mls/hr 03/25/21 12:00 Intropin Drip 800 Mg/D5w 250 Ml IV TITR DAMI Protocol 2 MCG/KG/MIN Insulin Human Regular 0 units 03/25/21 16:30 Insulin Regular, Human 100 Units/1 Ml SUB-Q ACHS DAMI Protocol Magnesium Hydroxide 30 ml 03/24/21 04:27 Magnesium Hydroxide (Mom) Oral Liqd Udc PO Q4H PRN Constipation Morphine Sulfate 4 mg 03/24/21 04:27 Morphine 4 Mg/1 Ml Inj IV Q4H PRN Pain , Severe (7-10) Ondansetron HCl 4 mg 03/24/21 04:27 Ondansetron 4 Mg/2 Ml Inj IV Q8H PRN Nausea And Vomiting Sodium Chloride 10 ml 03/24/21 10:00 03/25/21 11:17 Sodium Chloride 0.9% 10 Ml Flush Syringe IV 10 ml BID DAMI Administration Sodium Chloride 10 ml 03/24/21 04:27 Sodium Chloride 0.9% 10 Ml Flush Syringe IV PRN PRN LINE FLUSH Nutrition/Malnutrition Assess - Dietary Evaluation Nutrition/Malnutrition Findings: Nutrition Notes Start: 03/24/21 14:42 Freq: Status: Active Protocol: Document 03/24/21 14:42 GHULAM (Rec: 03/24/21 14:49 NHALL [id number]) Nutrition Notes Need for Assessment generated from: MD Order Initial or Follow up Assessment Other Pertinent Diagnosis FTT, generalized weakness, Arthritis, ARF Current Diet Regular Labs/Tests Na 132 K 6.2 BUN 84 Cr 4.1 BG 162 Phos 6 Pertinent Medications Dopamine gtt, Levophed gtt, NS at 150ml/hr Height 5 ft 3 in Weight 54.431 kg [place] Body Weight (kg) 52.27 BMI 21.2 Intake Prior to Admission Poor Weight Status Underweight Subjective/Other Information RD consulted for poor oral intake. Pt in ED at this time . Per records, pt with decreased oral intake over past few days. Burn Absent Trauma Absent Minimum of two criteria No #1 Nutrition Diagnosis Predicted suboptimal energy intake Etiology advanced age, FTT, weakness As Evidenced by Signs and Symptoms pt with poor oral intake [employer] Is patient on ventilator? No Is Patient Ambulatory and/or Out of Bed No [facility] [phone] Calculation Used for Recommendations [facility] Additional Notes Pro needs 0.8-1.2g/k-65g/ day Fluid needs 1ml/kcal Nutrition Intervention Change Diet Order: Continue current diet order as tolerated; may need renal restriction Goal #1 PO tolerance Goal #2 PO intakes to meet at least 75 % energy and pro needs Goal #3 Wt maintenance Anticipated Discharge Needs: ONS 1-2 times daily if PO intakes remain suboptimal Follow-Up By: 03/25/21 Additional Comments F/U: intakes, transfer to floor, POC
[2021-03-25] MEDS: CEFEPIME/NS 2 GM/100 ML 2 GM/100 ML BAG IV SCH (13:37)
--- NOTE | 2021-03-25 16:18 | Consultation ---
History of Present Illness Consult date: 03/25/21 Requesting physician: ANDRIA DARLING Reason for consult: other (RAUDEL; Hypotension) History of present illness: PULMONARY/CCM CONSULT NOTE (Full dictation # [id number]) Please see dictated notes for full details Past History Past Medical History: arthritis, GERD, hypertension Past Surgical History: No surgical history Social history: no significant social history Family history: no significant family history Medications and Allergies Allergies Allergy/AdvReac Type Severity Reaction Status Date / Time No Known Allergies Allergy Unverified 12/24/16 14:55 Home Medications Medication Instructions Recorded Confirmed Last Taken Type AtorvaSTATin [Lipitor] 20 mg PO QDAY 12/15/16 12/24/16 12/29/16 History FLUoxetine [PROzac] 20 mg PO QDAY 12/15/16 03/25/21 12/29/16 History Metformin HCl [Glucophage] 750 mg PO BID 12/15/16 03/25/21 12/29/16 History Gabapentin [Neurontin] 300 mg PO Q8HR 03/25/21 03/25/21 Unknown History Sitagliptin Phosphate [Januvia] 100 mg PO 03/25/21 Unknown History cilostazoL [Pletal] 100 mg PO BID 03/25/21 03/25/21 Unknown History LORazepam [Ativan] 1 mg PO QHS #30 tab 03/26/21 Unknown Rx Morphine Concentrate [MORPHINE 10 mg PO Q4HR PRN #30 ml 03/26/21 Unknown Rx Conc 20 MG/ML ORAL LIQ] Active Meds: Active Medications Acetaminophen (Acetaminophen 325 Mg Tab) 650 mg PO Q6H PRN PRN Reason: Pain, Mild (1-3) Atorvastatin Calcium (Atorvastatin 20 Mg Tab) 20 mg PO QDAY [facility] Last Admin: 03/25/21 11:16 Dose: 20 mg Documented by: Fluoxetine HCl (Fluoxetine 20 Mg Cap) 20 mg PO QDAY [facility] Last Admin: 03/25/21 11:16 Dose: 20 mg Documented by: Heparin Sodium (Porcine) (Heparin 5,000 Unit/1 Ml Vial) 5,000 unit SUB-Q Q8HR [facility] Last Admin: 03/25/21 14:52 Dose: 5,000 unit Documented by: Hydromorphone HCl (Hydromorphone 1 Mg/1 Ml Inj) 0.25 mg IV Q4H PRN PRN Reason: Pain, Moderate (4-6) Cefepime HCl (Cefepime/Ns 2 Gm/100 Ml) 2 gm in 100 mls @ 200 mls/hr IV Q24H DAMI; Protocol Last Admin: 03/25/21 13:37 Dose: 200 mls/hr Documented by: NORepinephrine/NS 8 MG-250 ML (Norepinephrine/Ns 8 Mg-250 Ml (Double Conc)) 8 mg in 250 mls @ 3.75 mls/hr IV TITRATE DAMI; Protocol Sodium Bicarbonate 150 meq/ (Dextrose) 1,150 mls @ 75 mls/hr IV DIRECT DAMI Dopamine HCl/Dextrose (Intropin Drip 800 Mg/D5w 250 Ml) 800 mg in 250 mls @ 2.041 mls/hr IV TITR DAMI; Protocol Insulin Human Regular (Insulin Regular, Human 100 Units/1 Ml) 0 units SUB-Q ACHS DAMI; Protocol Magnesium Hydroxide (Magnesium Hydroxide (Mom) Oral Liqd Udc) 30 ml PO Q4H PRN PRN Reason: Constipation Morphine Sulfate (Morphine 4 Mg/1 Ml Inj) 4 mg IV Q4H PRN PRN Reason: Pain , Severe (7-10) Ondansetron HCl (Ondansetron 4 Mg/2 Ml Inj) 4 mg IV Q8H PRN PRN Reason: Nausea And Vomiting Sodium Chloride (Sodium Chloride 0.9% 10 Ml Flush Syringe) 10 ml IV BID [facility] Last Admin: 03/25/21 11:17 Dose: 10 ml Documented by: Sodium Chloride (Sodium Chloride 0.9% 10 Ml Flush Syringe) 10 ml IV PRN PRN PRN Reason: LINE FLUSH Physical Examination Vital signs: Vital Signs Temp Pulse Resp BP Pulse Ox 98.5 F 96 H 12 96/36 93 03/24/21 02:45 03/24/21 02:45 03/24/21 02:45 03/24/21 02:45 03/24/21 02:45 Results - Laboratory Findings CBC and BMP: 03/25/21 04:37 03/25/21 04:37 PT/INR, D-dimer PT 17.2 Sec. (12.2-14.9) H 03/25/21 04:37 INR 1.35 (0.87-1.13) H 03/25/21 04:37 Abnormal lab findings: Abnormal Labs 08/11/0903/24/21 03/24/21 01:05 01:05 01:05 WBC 14.9 H RBC 3.58 L Hgb Hct MCH RDW 15.7 H Plt Count 668 H Lymph % (Auto) 7.2 L Lymph # (Auto) 1.1 L [place] # (Auto) 1.0 H Seg Neutrophils % 85.5 H Seg Neutrophils # 12.8 H PT 16.4 H INR 1.27 H Sodium 132 L Potassium 6.2 H* Chloride Carbon Dioxide 13 L BUN 84 H Creatinine 4.1 H Glucose 162 H POC Glucose Lactic Acid Calcium 8.2 L Phosphorus 6.00 H AST 41 H Total Creatine Kinase 1055 H Troponin T 0.042 H Albumin 2.5 L LDL Cholesterol Direct 21 L Urine WBC (Auto) Urine Creatinine Urine Chloride Salicylates Acetaminophen 03/24/21 03/24/21 03/24/21 01:05 01:05 01:05 WBC RBC Hgb Hct MCH RDW Plt Count Lymph % (Auto) Lymph # (Auto) [place] # (Auto) Seg Neutrophils % Seg Neutrophils # PT INR Sodium Potassium Chloride Carbon Dioxide BUN Creatinine Glucose POC Glucose Lactic Acid 4.30 H* Calcium Phosphorus AST Total Creatine Kinase Troponin T Albumin LDL Cholesterol Direct Urine WBC (Auto) Urine Creatinine Urine Chloride Salicylates < 0.3 L Acetaminophen 5.0 L 03/24/21 03/24/21 03/24/21 03:16 04:26 12:24 WBC RBC Hgb Hct MCH RDW Plt Count Lymph % (Auto) Lymph # (Auto) [place] # (Auto) Seg Neutrophils % Seg Neutrophils # PT INR Sodium Potassium Chloride Carbon Dioxide BUN Creatinine Glucose POC Glucose Lactic Acid 3.30 H* Calcium Phosphorus AST Total Creatine Kinase 985 H Troponin T Albumin LDL Cholesterol Direct Urine WBC (Auto) 21.0 H Urine Creatinine Urine Chloride Salicylates Acetaminophen 03/24/21 03/25/21 03/25/21 15:26 04:37 04:37 WBC 15.7 H RBC 3.45 L Hgb 9.3 L Hct 29.2 L MCH 27 L RDW 15.9 H Plt Count 733 H Lymph % (Auto) 5.6 L Lymph # (Auto) 0.9 L [place] # (Auto) 1.0 H Seg Neutrophils % 87.9 H Seg Neutrophils # 13.8 H PT 17.2 H INR 1.35 H Sodium Potassium Chloride Carbon Dioxide BUN Creatinine Glucose POC Glucose Lactic Acid Calcium Phosphorus AST Total Creatine Kinase Troponin T Albumin LDL Cholesterol Direct Urine WBC (Auto) Urine Creatinine 133.8 H Urine Chloride 14.2 L Salicylates Acetaminophen 03/25/21 03/25/21 04:37 07:57 WBC RBC Hgb Hct MCH RDW Plt Count Lymph % (Auto) Lymph # (Auto) [place] # (Auto) Seg Neutrophils % Seg Neutrophils # PT INR Sodium Potassium 5.5 H Chloride 107.8 H Carbon Dioxide 10 L BUN 90 H Creatinine 3.9 H Glucose 200 H POC Glucose 189 H Lactic Acid Calcium 7.4 L Phosphorus AST Total Creatine Kinase Troponin T Albumin LDL Cholesterol Direct Urine WBC (Auto) Urine Creatinine Urine Chloride Salicylates Acetaminophen
[2021-03-25] MEDS: INSULIN REGULAR, HUMAN 100 UNITS/1 ML SUB-Q SCH ×2 (16:34→22:30)
[2021-03-25] MEDS ORDERED: LORazepam 2 MG/ML VIAL IV PRN (18:08)
[2021-03-25] MEDS ORDERED: GLYCOPYRROLATE 0.4 MG/2 ML INJ IV PRN (18:08)
[2021-03-25] MEDS ORDERED: MORPHINE 2 MG/1 ML INJ IV PRN (18:08)
[2021-03-25] MEDS ORDERED: SODIUM CHLORIDE 0.9% 1000 ML 1,000 ML IV SCH (18:15)
[2021-03-26] MEDS: HEPARIN 5,000 UNIT/1 ML VIAL SUB-Q SCH (06:41)
[2021-03-26] MEDS ORDERED: SODIUM BICARBONATE 150 MEQ in DEXTROSE 5% IN WATER 1,000 ML IV SCH (09:00)
[2021-03-26] MEDS: INSULIN REGULAR, HUMAN 100 UNITS/1 ML SUB-Q SCH (09:37)
[2021-03-26] MEDS: FLUoxetine 20 MG CAP PO SCH (09:39)
--- NOTE | 2021-03-26 13:34 | Discharge Summary ---
Providers - Providers Date of Admission: 03/24/21 03:59 Attending physician: ALEJANDRO SANDY 03/24/21 04:27 Consult to Physician [CONS] Routine Comment: Consulting Provider: NIRMAL LECHUGA Physician Instructions: Reason For Exam: Acute renal failure,hyperkalemia,MetabolicAcidosis 03/24/21 06:25 Consult to Dietitian/Nutrition [CONS] Routine Physician Instructions: Reason For Exam: Reason for Consult: Poor oral intake 03/25/21 00:32 Consult to Physician [CONS] Routine Comment: Consulting Provider: CHELSEA ROGERS Physician Instructions: Reason For Exam: RAUDEL,Persistent hypotension- on Pressors Primary care physician: [employer] Hospitalization Condition: Stable Hospital course: 75-year-old female with known history of hypertension vascular dementia without behavioral disturbance, cerebral atherosclerosis, and arthritis brought into the emergency room today by EMS for evaluation of generalized weakness and failure to thrive.Patient lives by herself and son checks on on her sometimes. She has had decreased oral intake over the past few days. She denies any fever or chills, no chest pain or shortness of breath, no cough, no nausea vomiting, no diarrhea. No hematuria or dysuria.Work-up in the emergency room today, labs reveals leukocytosis of 14.9, sodium of 132, potassium of 6.2, elevated BUN and creatinine of 84 and 4.1, respectively. Patient had elevated creatinine kinase over thousand and 55 and troponin of 0.042. Urinalysis was significant for UTI. Patient was initiated on insulin and glucose, calcium chloride, nebulizing treatment for the hyperkalemia. She was commenced on empiric IV antibiotics for UTI. Patient convalesced poorly during hospital course. Patient developed sepsis and was initiated on sepsis protocol. Patient initiated on IV pressor support due to hypotension with systolic blood pressure in the 60s. Patient developed toxic metabolic encephalopathy. Patient found to have poor prognosis. Advanced care planning conducted. Patient family made aware of patient poor prognosis. Patient family elects to make patient DNR and initiate comfort care measures. Patient discharged home with home hospice care. Patient seen and evaluated prior to discharge. Patient found to be encephalopathic with diminished cognition. Patient is currently bedbound and nonambulatory and unable to make needs known and will not follow commands. Patient requires 6/6 assistance with activities of daily living. 35 minutes dedicated to patient discharge and coordination of care. Disposition: DC-50 TO HOSPICE (HOME) Final Discharge Diagnosis (Prints w/discharge instructions): sepsis, vascular dementia without behavioral disturbance, cerebral atherosclerosis, toxic metabolic encephalopathy, - Discharge Diagnoses (1) Sepsis Status: Acute Qualifiers: Severe sepsis acute organ dysfunction type: acute renal failure (2) Toxic metabolic encephalopathy Status: Acute (3) Acute kidney injury (RAUDEL) with acute tubular necrosis (ATN) Status: Acute (4) Rhabdomyolysis Status: Acute Qualifiers: Encounter type: initial encounter (5) DVT prophylaxis Status: Acute (6) Advance care planning Status: Acute Core Measure Documentation - Palliative Care Palliative Care/ Comfort Measures: Hospice Care Exam - Constitutional Vitals: Temp Pulse Resp BP Pulse Ox 98.7 F 95 H 22 71/26 100 03/25/21 16:00 03/26/21 12:15 03/26/21 12:15 03/26/21 12:15 03/26/21 12:15 General appearance: Present: severe distress - EENT Eyes: Present: miosis ENT: hearing decreased - Neck Neck: Present: supple, normal ROM - Respiratory Respiratory effort: labored Respiratory: bilateral: diminished, rhonchi - Cardiovascular Heart Sounds: Present: S1 & S2. Absent: rub, click - Extremities Extremities: pulses symmetrical, No edema Peripheral Pulses: abnormal (Capillary refill greater than 3.5 seconds) - Abdominal General gastrointestinal: Present: soft, non-tender, non-distended, normal bowel sounds Female genitourinary: Present: normal - Integumentary Integumentary: Present: clear, dry, clammy - Musculoskeletal Musculoskeletal: generalized weakness - Psychiatric Psychiatric: no appropriate mood/affect, no intact judgment & insight, no memory intact, agitated - Neurologic Neurologic: CNII-XII intact, no focal deficits, moves all extremities, no gait normal Plan Activity: advance as tolerated Weight Bearing Status: Non-Weight Bearing Diet: advance as tolerated Follow up with: PRIMARY CARE, [Primary Care Provider] - 3-5 Days Prescriptions: LORazepam [Ativan] 1 mg PO QHS #30 tab Morphine Concentrate [MORPHINE Conc 20 MG/ML ORAL LIQ] 10 mg PO Q4HR PRN #30 ml PRN Reason: Pain, Moderate (4-6)
[2021-03-26 16:16] VITALS: BP 70/26
--- NOTE | 2021-03-26 16:50 | Progress Note ---
Assessment and Plan - wean vasopressors for target MAP > 65 mmHg - continue to wean supplemental oxygen for target O2 sat's > 90% acutely - aspiration precautions - bronchodilators with pulmonary hygiene per RT - continue accuchecks with glycemic control per SSI (While critically ill target blood glucose of 140-180 mg/dL; avoid hypoglycemia) - continue Cefepime; de-escalate per ID recommendations - avoid nephrotoxins, renally dose all medications - continue to avoid benzodiazepine's, reduce the possibility of delirium - prn analgesia per CPOT score - Maintenance of sleep-wake cycle, avoid delirium - G.I. & VTE prophylaxis - PT/OT/ROM exercises - continue mobility protocols for pressure ulcer prophylaxis - Monitor hemodynamics closely - continue other care per attending / other consultants - discharge planning ongoing concurrently .... Re-evaluate in am & prn CONDITION: CRITICAL PROGNOSIS: GUARDED CODE STATUS: FULL CODE The high probability of a clinically significant, sudden or life-threatening deterioration of the [respiratory, cardiovascular & neurologic] system(s) required my full and direct attention, intervention and personal management. The aggregate critical care time was [34] minutes without overlap. Time includes spent on; [x] Data Review and interpretation [x] Patient assessment and monitoring of vital signs [x] Documentation [x] Medication orders and management Subjective Date of service: 03/26/21 Interval history: Patient is seen today for: Seen and examined at bedside; 24hour events reviewed; nursing and respiratory care staff consulted; no adverse overnight events reported to me; resting in bed; Objective Vital Signs - 12hr 03/26/21 03/26/21 03/26/21 07:15 07:31 07:45 Pulse Rate 98 H 98 H 103 H Respiratory 22 25 H 21 Rate Blood Pressure 74/23 85/35 71/34 O2 Sat by Pulse 99 98 96 Oximetry 03/26/21 03/26/21 03/26/21 08:01 08:15 08:31 Pulse Rate 102 H 99 H 96 H Respiratory 29 H 26 H 25 H Rate Blood Pressure 80/33 85/31 70/27 O2 Sat by Pulse 93 97 98 Oximetry 03/26/21 03/26/21 03/26/21 08:45 09:01 09:10 Pulse Rate 97 H 96 H Respiratory 24 21 Rate Blood Pressure 72/25 70/25 O2 Sat by Pulse 97 99 100 Oximetry 08/01/0903/26/21 03/26/21 09:15 09:31 09:45 Pulse Rate 95 H 95 H 95 H Respiratory 21 21 23 Rate Blood Pressure 63/28 61/29 73/28 O2 Sat by Pulse 99 100 100 Oximetry 03/26/21 03/26/21 03/26/21 10:01 10:15 10:31 Pulse Rate 93 H 95 H 97 H Respiratory 21 23 21 Rate Blood Pressure 73/22 73/28 82/25 O2 Sat by Pulse 100 100 100 Oximetry 03/26/21 03/26/21 03/26/21 10:45 11:01 11:15 Pulse Rate 96 H 97 H 94 H Respiratory 21 25 H 22 Rate Blood Pressure 89/23 94/25 74/31 O2 Sat by Pulse 100 100 100 Oximetry 03/26/21 03/26/21 03/26/21 11:31 12:01 12:15 Pulse Rate 99 H 100 H 95 H Respiratory 22 25 H 22 Rate Blood Pressure 73/28 79/24 71/26 O2 Sat by Pulse 99 100 100 Oximetry 03/26/21 03/26/21 03/26/21 13:01 14:01 15:01 Pulse Rate 95 H 96 H 102 H Respiratory 22 21 27 H Rate Blood Pressure 79/23 71/26 74/26 O2 Sat by Pulse 100 100 97 Oximetry 03/26/21 16:01 Pulse Rate 96 H Respiratory 22 Rate Blood Pressure 70/26 O2 Sat by Pulse 98 Oximetry CBC and BMP: 03/25/21 04:37 03/25/21 04:37 ABG, PT/INR, D-dimer: PT/INR, D-dimer PT 17.2 Sec. (12.2-14.9) H 03/25/21 04:37 INR 1.35 (0.87-1.13) H 03/25/21 04:37 Abnormal lab findings: Abnormal Labs 03/24/21 03/24/21 03/24/21 01:05 01:05 01:05 WBC 14.9 H RBC 3.58 L Hgb Hct MCH RDW 15.7 H Plt Count 668 H Lymph % (Auto) 7.2 L Lymph # (Auto) 1.1 L [place] # (Auto) 1.0 H Seg Neutrophils % 85.5 H Seg Neutrophils # 12.8 H PT 16.4 H INR 1.27 H Sodium 132 L Potassium 6.2 H* Chloride Carbon Dioxide 13 L BUN 84 H Creatinine 4.1 H Glucose 162 H POC Glucose Lactic Acid Calcium 8.2 L Phosphorus 6.00 H AST 41 H Total Creatine Kinase 1055 H Troponin T 0.042 H Albumin 2.5 L LDL Cholesterol Direct 21 L Urine WBC (Auto) Urine Creatinine Urine Chloride Salicylates Acetaminophen 03/24/21 03/24/21 03/24/21 01:05 01:05 01:05 WBC RBC Hgb Hct MCH RDW Plt Count Lymph % (Auto) Lymph # (Auto) [place] # (Auto) Seg Neutrophils % Seg Neutrophils # PT INR Sodium Potassium Chloride Carbon Dioxide BUN Creatinine Glucose POC Glucose Lactic Acid 4.30 H* Calcium Phosphorus AST Total Creatine Kinase Troponin T Albumin LDL Cholesterol Direct Urine WBC (Auto) Urine Creatinine Urine Chloride Salicylates < 0.3 L Acetaminophen 5.0 L 03/24/21 03/24/21 03/24/21 03:16 04:26 12:24 WBC RBC Hgb Hct MCH RDW Plt Count Lymph % (Auto) Lymph # (Auto) [place] # (Auto) Seg Neutrophils % Seg Neutrophils # PT INR Sodium Potassium Chloride Carbon Dioxide BUN Creatinine Glucose POC Glucose Lactic Acid 3.30 H* Calcium Phosphorus AST Total Creatine Kinase 985 H Troponin T Albumin LDL Cholesterol Direct Urine WBC (Auto) 21.0 H Urine Creatinine Urine Chloride Salicylates Acetaminophen 03/24/21 03/25/21 03/25/21 15:26 04:37 04:37 WBC 15.7 H RBC 3.45 L Hgb 9.3 L Hct 29.2 L MCH 27 L RDW 15.9 H Plt Count 733 H Lymph % (Auto) 5.6 L Lymph # (Auto) 0.9 L [place] # (Auto) 1.0 H Seg Neutrophils % 87.9 H Seg Neutrophils # 13.8 H PT 17.2 H INR 1.35 H Sodium Potassium Chloride Carbon Dioxide BUN Creatinine Glucose POC Glucose Lactic Acid Calcium Phosphorus AST Total Creatine Kinase Troponin T Albumin LDL Cholesterol Direct Urine WBC (Auto) Urine Creatinine 133.8 H Urine Chloride 14.2 L Salicylates Acetaminophen 03/25/21 03/25/21 03/25/21 04:37 07:57 16:31 WBC RBC Hgb Hct MCH RDW Plt Count Lymph % (Auto) Lymph # (Auto) [place] # (Auto) Seg Neutrophils % Seg Neutrophils # PT INR Sodium Potassium 5.5 H Chloride 107.8 H Carbon Dioxide 10 L BUN 90 H Creatinine 3.9 H Glucose 200 H POC Glucose 189 H 170 H Lactic Acid Calcium 7.4 L Phosphorus AST Total Creatine Kinase Troponin T Albumin LDL Cholesterol Direct Urine WBC (Auto) Urine Creatinine Urine Chloride Salicylates Acetaminophen 03/26/21 08:14 WBC RBC Hgb Hct MCH RDW Plt Count Lymph % (Auto) Lymph # (Auto) [place] # (Auto) Seg Neutrophils % Seg Neutrophils # PT INR Sodium Potassium Chloride Carbon Dioxide BUN Creatinine Glucose POC Glucose 175 H Lactic Acid Calcium Phosphorus AST Total Creatine Kinase Troponin T Albumin LDL Cholesterol Direct Urine WBC (Auto) Urine Creatinine Urine Chloride Salicylates Acetaminophen
--- NOTE | 2021-03-26 18:46 | Progress Note ---
Assessment and Plan - Patient Problems (1) Acute renal failure Current Visit: Yes Status: Acute Plan to address problem: likely prerenal in nature secondary to worsening failure to thrive and decreased oral intake. Agree with gentle IV fluid hydration and pressor support in order to maintain hemodynamic stability and mean arterial pressures above 65 mmHg. Pressors have been weaned off at this time and per nursing staff this am, plan is to transition to hospice/comfort care. (2) Acute hyperkalemia Current Visit: Yes Status: Acute Plan to address problem: Stable at present time. This is in the setting of acute kidney injury. Please maintain a low potassium diet. (3) Hypotension Current Visit: Yes Status: Acute Plan to address problem: patient initiated on pressor support with levophed. Avoid all antihypertensive medication at this time. We will continue to closely monitor. Blood cultures pending at this time. Has been weaned off pressor support as plan is to transition to hospice. (4) Failure to thrive Current Visit: Yes Status: Acute Plan to address problem: continue with gentle IV fluid hydration. Would likely benefit from nutritional consult for further evaluation and assessment. (5) Rhabdomyolysis Current Visit: Yes Status: Acute Qualifiers: Encounter type: initial encounter Plan to address problem: mild rhabdomyolysis noted. Will follow-up levels post hydration. We will continue to monitor closely. Subjective Date of service: 03/26/21 Interval history: No acute changes. Has been weaned off pressors, [facility] Patient was seen earlier this am. Objective - Vital Signs Vital signs: Vital Signs - 12hr 03/26/21 03/26/21 03/26/21 07:15 07:31 07:45 Pulse Rate 98 H 98 H 103 H Respiratory 22 25 H 21 Rate Blood Pressure 74/23 85/35 71/34 O2 Sat by Pulse 99 98 96 Oximetry 03/26/21 03/26/21 03/26/21 08:01 08:15 08:31 Pulse Rate 102 H 99 H 96 H Respiratory 29 H 26 H 25 H Rate Blood Pressure 80/33 85/31 70/27 O2 Sat by Pulse 93 97 98 Oximetry 03/26/21 03/26/21 03/26/21 08:45 09:01 09:10 Pulse Rate 97 H 96 H Respiratory 24 21 Rate Blood Pressure 72/25 70/25 O2 Sat by Pulse 97 99 100 Oximetry 03/26/21 03/26/21 03/26/21 09:15 09:31 09:45 Pulse Rate 95 H 95 H 95 H Respiratory 21 21 23 Rate Blood Pressure 63/28 61/29 73/28 O2 Sat by Pulse 99 100 100 Oximetry 03/26/21 03/26/21 03/26/21 10:01 10:15 10:31 Pulse Rate 93 H 95 H 97 H Respiratory 21 23 21 Rate Blood Pressure 73/22 73/28 82/25 O2 Sat by Pulse 100 100 100 Oximetry 03/26/21 03/26/21 03/26/21 10:45 11:01 11:15 Pulse Rate 96 H 97 H 94 H Respiratory 21 25 H 22 Rate Blood Pressure 89/23 94/25 74/31 O2 Sat by Pulse 100 100 100 Oximetry 03/26/21 03/26/21 03/26/21 11:31 12:01 12:15 Pulse Rate 99 H 100 H 95 H Respiratory 22 25 H 22 Rate Blood Pressure 73/28 79/24 71/26 O2 Sat by Pulse 99 100 100 Oximetry 03/26/21 03/26/21 03/26/21 13:01 14:01 15:01 Pulse Rate 95 H 96 H 102 H Respiratory 22 21 27 H Rate Blood Pressure 79/23 71/26 74/26 O2 Sat by Pulse 100 100 97 Oximetry 03/26/21 16:01 Pulse Rate 96 H Respiratory 22 Rate Blood Pressure 70/26 O2 Sat by Pulse 98 Oximetry - General Appearance General appearance: appears stated age, chronically ill EENT: ATNC Neck: no JVD Respiratory: Present: Wheezes Cardiology: regular Gastrointestinal: normal Integumentary: warm and dry Musculoskeletal: deferred - Lab 03/25/21 04:37 03/25/21 04:37 Most recent lab results Calcium 7.4 mg/dL (8.4-10.2) L 03/25/21 04:37 Phosphorus 6.00 mg/dL (2.5-4.5) H 03/24/21 01:05 Magnesium 2.20 mg/dL (1.7-2.3) 03/24/21 01:05 Urine Creatinine 133.8 mg/dL (0.1-20.0) H 03/24/21 15:26 Urine Sodium 26 mmol/L 03/24/21 15:26 Medications & Allergies - Medications Allergies/Adverse Reactions: Allergies No Known Allergies Allergy (Unverified 12/24/16 14:55) Home Medications: Home Medications Medication Instructions Recorded Confirmed Last Taken Type AtorvaSTATin [Lipitor] 20 mg PO QDAY 12/15/16 12/24/16 12/29/16 History FLUoxetine [PROzac] 20 mg PO QDAY 12/15/16 03/25/21 12/29/16 History Metformin HCl [Glucophage] 750 mg PO BID 12/15/16 03/25/21 12/29/16 History Gabapentin [Neurontin] 300 mg PO Q8HR 03/25/21 03/25/21 Unknown History Sitagliptin Phosphate [Januvia] 100 mg PO 03/25/21 Unknown History cilostazoL [Pletal] 100 mg PO BID 03/25/21 03/25/21 Unknown History LORazepam [Ativan] 1 mg PO QHS #30 tab 03/26/21 Unknown Rx Morphine Concentrate [MORPHINE 10 mg PO Q4HR PRN #30 ml 03/26/21 Unknown Rx Conc 20 MG/ML ORAL LIQ] Active Medications: Generic Name Dose Route Start Last Admin Trade Name Freq PRN Reason Stop Dose Admin Acetaminophen 650 mg 03/24/21 11:44 Acetaminophen 325 Mg Tab PO Q6H PRN Pain, Mild (1-3) Atorvastatin Calcium 20 mg 03/25/21 10:00 03/26/21 09:38 Atorvastatin 20 Mg Tab PO Not Given QDAY [facility] Fluoxetine HCl 20 mg 03/25/21 10:00 03/26/21 09:39 Fluoxetine 20 Mg Cap PO Not Given QDAY [facility] Glycopyrrolate 0.2 mg 03/25/21 18:08 Glycopyrrolate 0.4 Mg/2 Ml Inj IV Q4H PRN Secretions Heparin Sodium (Porcine) 5,000 unit 03/24/21 06:00 03/26/21 06:41 Heparin 5,000 Unit/1 Ml Vial SUB-Q 5,000 unit Q8HR [facility] Administration Hydromorphone HCl 0.25 mg 03/24/21 11:44 Hydromorphone 1 Mg/1 Ml Inj IV Q4H PRN Pain, Moderate (4-6) Cefepime HCl 2 gm in 100 mls @ 200 mls/hr 03/24/21 13:00 03/25/21 13:37 Cefepime/Ns 2 Gm/100 Ml IV 03/28/21 13:29 200 mls/hr Q24H DAMI Administration Protocol Dopamine HCl/Dextrose 800 mg in 250 mls @ 2.041 mls/hr 03/25/21 12:00 Intropin Drip 800 Mg/D5w 250 Ml IV TITR DAMI Protocol 2 MCG/KG/MIN Sodium Bicarbonate 150 meq/ 1,150 mls @ 75 mls/hr 03/26/21 09:00 03/26/21 09:36 Dextrose IV 75 mls/hr DIRECT DAMI Administration Insulin Human Regular 0 units 03/25/21 16:30 03/26/21 09:37 Insulin Regular, Human 100 Units/1 Ml SUB-Q Not Given ACHS DAMI Protocol Lorazepam 2 mg 03/25/21 18:08 Lorazepam 2 Mg/Ml Vial IV Q1H PRN anxiety/insomnia Magnesium Hydroxide 30 ml 03/24/21 04:27 Magnesium Hydroxide (Mom) Oral Liqd Udc PO Q4H PRN Constipation Morphine Sulfate 4 mg 03/24/21 04:27 Morphine 4 Mg/1 Ml Inj IV Q4H PRN Pain , Severe (7-10) Morphine Sulfate 2 mg 03/25/21 18:08 Morphine 2 Mg/1 Ml Inj IV Q1H PRN mod pain or comfort measures Ondansetron HCl 4 mg 03/24/21 04:27 Ondansetron 4 Mg/2 Ml Inj IV Q8H PRN Nausea And Vomiting Sodium Chloride 10 ml 03/24/21 10:00 03/26/21 09:39 Sodium Chloride 0.9% 10 Ml Flush Syringe IV Not Given BID DAMI Sodium Chloride 10 ml 03/24/21 04:27 Sodium Chloride 0.9% 10 Ml Flush Syringe IV PRN PRN LINE FLUSH
--- NOTE | 2021-03-27 01:34 | Consultation ---
DATE OF CONSULTATION: 03/25/2021 PULMONARY CRITICAL CARE CONSULTATION NOTE DATE OF CONSULTATION: 03/25/2021 CONSULTING PHYSICIAN: Dr. Jose Ospina. REASON FOR CONSULTATION: Sepsis, persistent hypotension, RAUDEL. CHIEF COMPLAINT AND HISTORY OF PRESENT ILLNESS: As follows: The patient is a now 75-year-old female with a past medical history significant amongst other things for a diagnosis of hypertension and arthritis, as far as I know not on any immunosuppressive medication, was brought into the emergency room by emergency medical services for generalized weakness and failure to thrive. She apparently lives alone. Her son checks on her sometimes. She has had decreased oral intake in the preceding few days. She denied fevers or chills. She denied chest pain or shortness of breath. She denied nausea, vomiting, or overt aspiration. She denied diarrhea. I should mention, when I saw her, she was delirious and her history is a little bit suspect. She was evaluated in the emergency room, found out to be septic. Essentially, she had a leukocytosis. She was hypotensive. She also had evidence of rhabdomyolysis and she was stabilized, started on empiric IV antibiotics. We are asked to assist with management. When I stopped by to see her, she was resting in bed, mumbling most of the time, not giving me concise answers, unclear if this is acute or chronic delirium/dementia issue. She was on supplemental oxygen. When asked about tobacco use/abuse history, she was not able to let me know, that history is unknown. The above is as much of the history of presentation as I have. PAST MEDICAL HISTORY: Arthritis, gastroesophageal reflux disease, hypertension. PAST SURGICAL HISTORY: Unknown. MEDICATIONS: She was on at the time I stopped by to see her were reviewed, pertinent medications include the following: Tylenol 650 mg p.o. q. 6 hours p.r.n. mild pain or fevers, Lipitor 20 mg p.o. daily, fluoxetine 20 mg p.o. daily, heparin 5000 units subQ q. 8 hours, Dilaudid 0.25 mg IV q. 4 hours p.r.n. moderate pain, cefepime 2 grams IV daily, Levophed drip was going at 20 mcg per minute, insulin via sliding scale, morphine sulfate 4 mg IV q. 4 hours p.r.n. severe pain, Zofran 4 mg IV q. 8 hours p.r.n. nausea and vomiting. ALLERGIES: No known drug allergies. DIET: Thin, chronically ill looking lady, acute weight loss or gain history is unknown. FAMILY AND SOCIAL HISTORY: Apparently, lives in the community. Lives alone. Alcohol, tobacco, or illicit drug use or abuse history is unknown. Family history is otherwise unknown. She reportedly has a son. REVIEW OF SYSTEMS: Unobtainable secondary to the patient's medical and mental condition. Since she has been here, no gross hematochezia or melena, no gross hematuria, no hematemesis, no witnessed seizures. Review of systems is otherwise unobtainable or as in the body of the history above. PHYSICAL EXAMINATION: VITAL SIGNS: At presentation in the emergency room, review of the vital signs shows that she was afebrile, temperature 98.5 degrees Fahrenheit, pulse of 96, respiratory rate of 12, blood pressure of 96/36, O2 sats were 93%. At the time I saw her, she was on 3 liters nasal cannula. GENERAL: She is an elderly looking female, normocephalic, atraumatic, talking to me in slightly interrupted sentences with mildly increased respiratory effort at rest. HEAD, EYES, EARS, NOSE, AND THROAT: Anicteric. No conjunctival erythema. Oropharynx was dry. NECK: No gross jugular venous distention. No thyromegaly. Grossly, there were no palpable lymph nodes in the supraclavicular or submandibular lymph node chains. LUNGS: Auscultation of both lung parker significant for diminished bilateral breath sounds, scant basilar rhonchi, no active wheezing. HEART: Sounds 1 and 2 are heard, regular rate and rhythm at the time of my evaluation without overt rubs or murmurs. ABDOMEN: Soft, full, protuberant. Bowel sounds are positive, nontender, no palpable hepatosplenomegaly. EXTREMITIES: Without overt digital clubbing or cyanosis. No pedal edema. Pedal pulses are 2+ bilaterally. She had a right groin, I believe, central line. NEUROLOGIC: Pupils were equal, round, about 3 mm, reactive to light. Extraocular muscle movements were intact. She has spontaneous movements to all 4 extremities. She was a little confused. SKIN: Poor turgor; however, without overt cellulitis or rash in the areas I examined. Please see the wound care nurses' notes however for full description of her skin. PSYCHIATRIC: Mood and affect were flat to anxious at times. She was delirious. LABORATORY DATA: From my review are as follows: White cell count 14,900, hemoglobin 10.1, hematocrit 30.6, platelet count 668. No manual differential. INR was 1.27. Serum sodium 132, potassium 6.2, chloride 99, bicarbonate 13, BUN 84, creatinine 3.1, and glucose of 162. Lactic acid level was 3.3, that has come down to normal limits. AST was 41. CPK was 1055. Troponin 0.042. Albumin was low at 2.5. Otherwise, liver function tests within normal limits. TSH within normal limits. LDL cholesterol was 21. Urinalysis showed large leukocyte esterase, 21 white cells per high power field. Aspirin and Tylenol levels were within normal limits. Two sets of blood cultures, no growth to date. Radiographic studies have been reviewed. A chest x-ray was done. I have reviewed the chest x-ray. Essentially, it is poorly rotated poorly positioned x-ray, perhaps some right lower lobe basilar atelectasis, otherwise nothing acute looking. ASSESSMENT: 1. Severe sepsis with shock, presumably due to urinary tract infection. 2. Urinary tract infection. 3. Acute toxic metabolic encephalopathy. 4. Acute kidney injury. 5. Rhabdomyolysis. 6. Hyperkalemia. 7. Adult failure to thrive. 8. Leukocytosis. 9. Thrombocytosis. 10. Lactic acidosis. PLAN: I do agree with current antibiotic therapy and current interventions. Volume resuscitation will be continued. Vasopressors will be weaned to keep mean arterial pressures greater than or equal to about 65 mmHg. Aspiration precautions will be maintained. Oxygen will be weaned to keep sats greater than or equal to about 92%. Nephrology consultation has been placed. Urine electrolytes have been ordered. Hopefully, this is a prerenal syndrome and should improve with volume resuscitation. We will, however, defer to the biophysics scientist. If we are unable to get off vasopressors in the next 48 hours to 72 hours max, different IV access will be found for central line. We will order a procalcitonin level, CRP level to help guide clinical decision making. Infectious disease consultation will be at the behest of the attending physician. Oral nutrition with aspiration precautions will be the feeding modality of choice. A wound care consult will be per the attending. She is on DVT prophylaxis. I will be putting her on GI prophylaxis with famotidine. Flu and pneumonia vaccination will be addressed per protocol. Thank you very much for the consult. We will follow along and make further recommendations as picture progresses/becomes clearer. She is critically ill on life-sustaining interventions including vasopressors at high risk of from cardiopulmonary system decompensation. At this time, I have spent about 35 minutes of critical care time without overlap and excluding any procedural time that may be necessary. TID: [id number] RECEIPT: [id number] GÓMEZ/JUAN
== END 2021-03-26 19:00 | disposition hospice, home (50) | DRG 871 ==
LOC: ED 21:14 → 4A 03-24 03:59 → CC1 03-24 12:13
PROVIDERS: ADMIT Internal Medicine Geriatric Medicine; ATTEND Internal Medicine
PROC: 06HY33Z Insertion of Infusion Device into Lower Vein, Percutaneous Approach (ICD-10-PCS; principal; 2021-03-24)
PROC: 3E043XZ Introduction of Vasopressor into Central Vein, Percutaneous Approach (ICD-10-PCS; 2021-03-24)
DX: A41.9 Sepsis, unspecified organism (principal); R65.21 Severe sepsis with septic shock; G92 Toxic encephalopathy; N17.0 Acute kidney failure with tubular necrosis; M62.82 Rhabdomyolysis; N39.0 Urinary tract infection, site not specified; R62.7 Adult failure to thrive; E87.5 Hyperkalemia; M19.90 Unspecified osteoarthritis, unspecified site; K21.9 Gastro-esophageal reflux disease without esophagitis; I10 Essential (primary) hypertension; F01.50 Vascular dementia, unspecified severity, without behavioral disturbance, psychotic disturbance, mood disturbance, and anxiety; I70.90 Unspecified atherosclerosis; D47.3 Essential (hemorrhagic) thrombocythemia; Z79.899 Other long term (current) drug therapy
CPT/HCPCS: 36415; 71045; 76770; 80048; 80053; 80061; 80320; 81001; 82140; 82436; 82550; 82570; 82962; 83735; 84100; 84300; 84443; 84484; 85025; 85610; 86850; 86900; 86901; 87040; 87086; 93005; 94640; G0378; A9270-GY; G0480; J0692; J0696; J1265; J1644; J1815; J7030; J7070